=== PATIENT | male | born 1945 | race Caucasian/White ===

== ENCOUNTER → 2016-04-18 | Outpatient (REF) | payer MEDICARE, OTHER | END | disposition home or self-care (01) | LOC: M LAB REF 16:44 | PROVIDERS: ATTEND Physician Assistant | DX: L03.115 Cellulitis of right lower limb (principal) ==

== ENCOUNTER → 2016-09-12 | Outpatient (CLI) | payer MEDICARE, OTHER | LOC: M WUC 08:33 | PROVIDERS: ATTEND Physician Assistant | DX: M10.021 Idiopathic gout, right elbow (principal) ==

== ENCOUNTER → 2016-09-20 | Outpatient (CLI) | payer MEDICARE, OTHER ==
--- NOTE | 2016-09-20 10:03 | REP ---
Clinical: Pain without trauma. Technique: AP, lateral, bilateral oblique views of the right elbow. Findings: Arthritic degenerative changes include cortical irregularity involving the humeral condyles and proximal elbow along with subtle subchondral sclerosis as well as calcified loose bodies within the joint space. Lateral view demonstrates mild soft tissue swelling and possible chronic joint effusion/bursitis. Impression: Moderate arthritic degenerative changes. Signed by Stephen Vargas MD 09/20/2016 09:55 A
== END ==
LOC: M WUC 09:35
PROVIDERS: ATTEND Physician Assistant
DX: M77.11 Lateral epicondylitis, right elbow (principal)

== ENCOUNTER → 2016-10-11 | Outpatient (CLI) | payer MEDICARE, OTHER ==
--- NOTE | 2016-10-11 12:41 | REP ---
Low-dose lung screening CT without IV contrast: Studies presented at lung windowing only. Comparison is 08/14/2014. There are no lung nodules or masses. No infiltrates or effusions. Impression: Category 1 low-dose screening chest CT . The recommendation is for continued annual low-dose lung CT screening. Signed by Georgi Valdes MD 10/11/2016 12:32 P
== END ==
LOC: M RAD 09:52
PROVIDERS: ATTEND Family Medicine
DX: Z87.891 Personal history of nicotine dependence (principal)

== ENCOUNTER → 2016-10-19 | Outpatient (CLI) | payer MEDICARE, OTHER ==
--- NOTE | 2016-10-19 16:17 | REP ---
LEFT FOOT, FOUR VIEWS: HISTORY: Pain. There is no acute fracture or dislocation. There is narrowing of the tarsal and tarsometatarsal, first and second metatarsophalangeal joint spaces. Osteophytes are present at the second metatarsal phalangeal joint space. Calcifications are present medial and lateral to the head of the first metatarsal. Osteophytes are present on the inferior calcaneus and posterior and anterosuperior talus. A faint lucency is present in the head of the second metatarsal. This may represent a small erosion. IMPRESSION: The above findings most likely represent osteoarthritis, however, erosive osteoarthritis and gout____ are not completely excluded. Signed by Jim Lang MD 10/19/2016 04:18 P
== END ==
LOC: M WUC 14:13
PROVIDERS: ATTEND Physician Assistant
DX: M79.672 Pain in left foot (principal)

== ENCOUNTER 2017-09-02 09:26 | Emergency (ER) | payer MEDICARE, OTHER ==
[2017-09-02] MEDS: LIDOCAINE 2% W/EPIN INJ 20ML **PRES FREE INJ (10:02)
== END 2017-09-02 10:28 | disposition home or self-care (01) ==
LOC: M ED 09:26
DX: N50.9 Disorder of male genital organs, unspecified (principal); G24.9 Dystonia, unspecified; Z87.891 Personal history of nicotine dependence; Z79.82 Long term (current) use of aspirin; Z79.899 Other long term (current) drug therapy; Z91.89 Other specified personal risk factors, not elsewhere classified
CPT/HCPCS: 10060

== ENCOUNTER 2017-10-03 08:24 | Day surgery (SDC) | payer MEDICARE, OTHER ==
[2017-10-03] MEDS: NS 1,000 ML IV (08:30)
[2017-10-03] MEDS ORDERED: PROPOFOL 200 MG/20 ML VIAL As Ordered ×2 (08:46→09:31)
[2017-10-03] MEDS ORDERED: LIDOCAINE 2% INJ 100 MG/5 ML SDV (FOR ANES.) As Ordered (08:51)
[2017-10-03] MEDS ORDERED: LIQUID POLIBAR PLUS 105% w/v 1900ML BTL As Ordered (14:15)
== END 2017-10-03 14:15 | disposition home or self-care (01) ==
LOC: M OPP 08:24
DX: Z12.11 Encounter for screening for malignant neoplasm of colon (principal); Z86.010 Personal history of colon polyps; K57.30 Diverticulosis of large intestine without perforation or abscess without bleeding; K21.9 Gastro-esophageal reflux disease without esophagitis; D64.9 Anemia, unspecified; G24.9 Dystonia, unspecified; G64 Other disorders of peripheral nervous system; E78.5 Hyperlipidemia, unspecified; R23.3 Spontaneous ecchymoses; Z79.82 Long term (current) use of aspirin; Z79.899 Other long term (current) drug therapy; Z86.79 Personal history of other diseases of the circulatory system; Z87.39 Personal history of other diseases of the musculoskeletal system and connective tissue; Z96.642 Presence of left artificial hip joint; Z87.891 Personal history of nicotine dependence
CPT/HCPCS: G0105

== ENCOUNTER → 2017-10-19 | Outpatient (CLI) | payer MEDICARE, OTHER | LOC: M RAD 15:21 | DX: Z12.2 Encounter for screening for malignant neoplasm of respiratory organs (principal); Z87.891 Personal history of nicotine dependence | CPT/HCPCS: G0297 ==

== ENCOUNTER 2017-12-28 21:06 | Emergency (ER) | payer MEDICARE, OTHER ==
[2017-12-28] MEDS: NS 1,000 ML IV (21:41)
[2017-12-28] MEDS: ONDANSETRON 4MG/2ML VIAL (J2405) IV (21:45)
[2017-12-28 21:58] LABS: BASO # 0.1 10^3/uL (0.0-0.2); BASO % 0.4 % (0.0-1.0); EOS # 0.2 10^3/uL (0.0-0.50); EOS % 1.3 % (0.0-3.0); HEMATOCRIT 38.6 % (42.0-52.0); HEMOGLOBIN 13.3 g/dl (13.5-17.5); IMMATURE GRANULOCYTE % 0.4 % (0-3.0); LYMPH # 1.9 10^3/uL (1.5-4.5); LYMPH % 15.8 % (24.0-44.0); MEAN CORPUSCULAR HEMOGLOBIN 33.1 pg (27.0-33.0); MEAN CORPUSCULAR HGB CONC 34.5 g/dl (32.0-36.5); MONO % 8.5 % (0.0-5.0); NEUTROPHILS % 73.6 % (36.0-66.0); PLATELET COUNT, AUTOMATED 218 10^3/uL (150-450); RED BLOOD COUNT 4.02 10^6/uL (4.30-6.10); RED CELL DISTRIBUTION WIDTH 12.8 % (11.5-14.5); WHITE BLOOD COUNT 12.2 10^3/uL (4.0-10.0)
[2017-12-28] MEDS: FAMOTIDINE IV BAG 20 MG in APPROPRIATE DILUENT 1 EA IV (21:59)
[2017-12-28 22:08] LABS: INR 1.04; PROTHROMBIN TIME 13.7 SECONDS (12.1-14.4)
[2017-12-28 23:06] LABS: ALBUMIN 3.1 GM/DL (3.2-5.2); ALBUMIN/GLOBULIN RATIO 0.89 (1.00-1.93); ALKALINE PHOSPHATASE 107 U/L (45-117); ALT/SGPT 34 U/L (12-78); AMYLASE 72 U/L (25-115); ANION GAP 9 MEQ/L (8-16); AST/SGOT 31 U/L (7-37); BILIRUBIN,DIRECT < 0.1 MG/DL (0.0-0.2); BILIRUBIN,TOTAL 0.3 MG/DL (0.2-1.0); BLOOD UREA NITROGEN 16 MG/DL (7-18); CALCIUM LEVEL 7.8 MG/DL (8.8-10.2); CARBON DIOXIDE LEVEL 25 MEQ/L (21-32); CHLORIDE LEVEL 104 MEQ/L (98-107); CPK CREATINE PHOSPHOKINASE 294 U/L (39-308); CREATININE FOR GFR 0.79 MG/DL (0.70-1.30); GLOMERULAR FILTRATION RATE > 60.0 (>42); GLUCOSE, FASTING 100 MG/DL (70-100); LIPASE 94 U/L (73-393); MB/CK RELATIVE INDEX 1.97 (< OR =4); POTASSIUM SERUM 4.7 MEQ/L (3.5-5.1); SODIUM LEVEL 138 MEQ/L (136-145); TOTAL PROTEIN 6.6 GM/DL (6.4-8.2); TROPONIN I < 0.02 NG/ML (< 0.10)
== END 2017-12-28 23:59 | disposition home or self-care (01) ==
LOC: M ED 21:06
DX: R11.0 Nausea (principal); I49.3 Ventricular premature depolarization; R94.31 Abnormal electrocardiogram [ECG] [EKG]; I48.91 Unspecified atrial fibrillation; E78.5 Hyperlipidemia, unspecified; G89.29 Other chronic pain; Z82.49 Family history of ischemic heart disease and other diseases of the circulatory system; Z91.048 Other nonmedicinal substance allergy status; Z95.828 Presence of other vascular implants and grafts; Z98.890 Other specified postprocedural states
CPT/HCPCS: J2405

== ENCOUNTER 2018-06-20 19:18 | Emergency (ER) | payer OTHER, MEDICARE ==
[~2018-06-20] VITALS: Ht 172.7 cm; Wt 78.2 kg
[~2018-06-20 19:18] MED LIST: ALPR0.5T3 PO; ASPI81TA85 PO; BACT800T5 PO; CELE1CAP9 PO; FIBE625T22 PO; FLUTISP; GABA600T4 PO; SIMV20TA2 PO; VITA200015 PO; ZOFR4TAB14 PO
[2018-06-20] MEDS ORDERED: CLEO300C2 PO (21:13)
[2018-06-20] MEDS ORDERED: CLINDAMYCIN 150 MG CAP PO ONE (21:15)
[2018-06-20 21:20] VITALS: BP 152/70
== END 2018-06-20 21:23 | disposition home or self-care (01) ==
LOC: M ED 19:18
DX: L03.115 Cellulitis of right lower limb (principal); Z95.828 Presence of other vascular implants and grafts; Z86.79 Personal history of other diseases of the circulatory system; Z91.048 Other nonmedicinal substance allergy status; Z79.899 Other long term (current) drug therapy

== ENCOUNTER → 2018-10-12 | Outpatient (CLI) | payer MEDICARE, OTHER ==
[~2018-10-12] MED LIST changes: +CLEO300C2 PO
--- NOTE | 2018-10-12 09:50 | REP ---
Right hand five views for fifth digit. Probable: There are no comparisons. There is PIP and DIP joint space narrowing compatible with early osteoarthritic change. There are is no fracture or dislocation. There is no abnormality of the fifth digit in the location of the palpable lump. There is extensive calcification of the radiocarpal joint including the triangular fibrocartilage compatible with CPPD. There is a bone cyst in the ulnar head. There is joint space narrowing of the radiocarpal joint compatible with osteoarthritis. Impression: There are findings compatible with osteoarthritis and the digits and in the radiocarpal joint. There is calcification of the radiocarpal joint compatible with CPPD. No abnormality of the fifth digit in the area of the palpable lump. Electronically Signed by Georgi Valdes MD 10/12/2018 09:42 A
== END ==
LOC: M WUC 09:18
PROVIDERS: ATTEND Family Medicine
DX: M19.041 Primary osteoarthritis, right hand (principal); M25.741 Osteophyte, right hand

== ENCOUNTER → 2018-10-25 | Outpatient (CLI) | payer MEDICARE, OTHER ==
[~2018-10-25] MED LIST changes: +CIDA500T2 PO; +CITRTAB13 PO; +COQ1100C4 PO; +CYAN100049 PO; +DOCU-129 PO; +QC F0.52 PO; -SIMV20TA2 PO; +SIMV20TA22 PO; +VITA100T29 PO
--- NOTE | 2018-10-25 14:27 | REP ---
REASON: Tobacco abuse. COMPARISON: Multiple, the latest 10/19/2017. As per the protocol, only lung window images were sent to the read station for interpretation. There are no significant changes. There are no new abnormal nodules, masses, or opacities. Grossly, the mediastinum and pulmonary josé are unchanged. Grossly, the imaged upper abdomen and imaged osseous structures are unchanged. IMPRESSION: No significant change. Lung RADS category I. Electronically Signed by Marquez Yao DO 10/25/2018 05:00 P
== END ==
LOC: M RAD 07:51
PROVIDERS: ATTEND Family Medicine
DX: Z87.891 Personal history of nicotine dependence (principal)

== ENCOUNTER → 2019-01-29 | Outpatient (CLI) | payer MEDICARE, OTHER ==
[~2019-01-29] MED LIST changes: -CIDA500T2 PO; -CITRTAB13 PO; -COQ1100C4 PO; -CYAN100049 PO; -DOCU-129 PO; -QC F0.52 PO; +SIMV20TA2 PO; -SIMV20TA22 PO; -VITA100T29 PO
--- NOTE | 2019-01-29 15:22 | ECGEPIP ---
[facility] [place] Test Date: 2019-01-29 Pat Name: TOD VIRAMONTES Department: Room: - Gender: Male Customer Operations Intern: : 1945 Requested By: Shayan Gaytan @ [facility] Order Number: [id number] Reading MD: Saba Robin Measurements Intervals [place] Rate: 74 P: TN: 0 QRS: -63 QRSD: 176 T: 26 QT: 427 QTc: 475 Interpretive Statements SINUS SANCHEZ WITH FREQUENT PVCX, RARE PAC RIGHT BUNDLE BRANCH BLOCK LEFT ANTERIOR FASCICULAR BLOCK PULM DIS PATTERN UNEVEN BASELINE MAKES INTERPRET OF ST TS DIFFICULT QTC PROLONGED C/W 12/28/17 Electronically Signed on 01-29-2019 15:22:26 EST by Saba Robin
== END ==
LOC: M LAB 07:52
PROVIDERS: ATTEND Orthopaedic Surgery
DX: Z01.811 Encounter for preprocedural respiratory examination (principal); M48.02 Spinal stenosis, cervical region; R94.31 Abnormal electrocardiogram [ECG] [EKG]

== ENCOUNTER 2019-09-02 14:06 | Emergency (ER) | payer MEDICARE, OTHER ==
[~2019-09-02] VITALS: Ht 170.2 cm; Wt 74.0 kg
[~2019-09-02 14:06] MED LIST changes: +CIDA500T2 PO; +CITRTAB16 PO; +COQ1100C4 PO; +CYAN100049 PO; +DOCU-129 PO; +QC F0.52 PO; -SIMV20TA2 PO; +SIMV20TA22 PO; +VITA100T29 PO
[2019-09-02] MEDS ORDERED: CIPR-249 PO (16:32)
[2019-09-02 16:40] VITALS: BP 135/65
== END 2019-09-02 16:43 | disposition home or self-care (01) ==
LOC: M ED 14:06
DX: K61.1 Rectal abscess (principal)

== ENCOUNTER → 2019-09-19 | Outpatient (REF) | payer MEDICARE, OTHER ==
[~2019-09-19] MED LIST changes: +CIPR-249 PO
[2019-09-19 13:28] LABS: FOLATE 9.5 NG/ML
[2019-09-25 13:07] LABS: CERULOPLASMIN 26.8 mg/dL (16.0-31.0); VITAMIN B1 LEVEL WHOLE BLOOD 99.9 nmol/L (66.5-200.0); VITAMIN B6,PYRIDOXAL PHOSPHATE 54.6 ug/L (5.3-46.7); VITAMIN E(ALPHA TOCOPHEROL) 10.2 mg/L (9.0-29.0); VITAMIN E(GAMMA TOCOPHEROL) 1.5 mg/L (0.5-4.9)
== END ==
LOC: M LAB REF 11:14
PROVIDERS: ATTEND Family Medicine
DX: E83.01 Wilson's disease (principal); E53.8 Deficiency of other specified B group vitamins

== ENCOUNTER → 2019-11-19 | Outpatient (CLI) | payer MEDICARE, OTHER ==
[~2019-11-19] MED LIST changes: -ASPI81TA85 PO; +ASPI81TA86 PO
--- NOTE | 2019-12-17 14:59 | REP ---
LOW-DOSE LUNG SCREENING CT CLINICAL: Nicotine dependence. TECHNIQUE: Axial noncontrast low dose lung screening images. COMPARISON: 10/25/2018, 10/11/2016. FINDINGS: Lung anguiano demonstrate chronic age-related interstitial changes and mild subpleural fibrosis (right greater than left). Findings appeared mildly progressive when compared to prior examinations. No focal consolidation. No nodule or mass lesion. No effusion. Tracheobronchial tree is patent. Limited evaluation of the mediastinum demonstrate atherosclerotic disease to the thoracic aorta and coronary arteries along with cardiomegaly. Few prominent lymph nodes again noted and stable. IMPRESSION: * Progressive chronic interstitial changes and subpleural fibrosis. * No acute nodule or mass. * Lung-RADS Category 1. Annual follow up surveillance CT recommended. MTDD
== END ==
LOC: M RAD 14:55
PROVIDERS: ATTEND Family Medicine
DX: Z12.2 Encounter for screening for malignant neoplasm of respiratory organs (principal); Z87.891 Personal history of nicotine dependence; J84.10 Pulmonary fibrosis, unspecified

== ENCOUNTER → 2020-01-08 | Outpatient (CLI) | payer MEDICARE, OTHER ==
[2020-01-08 17:14] LABS: HEMATOCRIT 40.2 % (42.0-52.0); HEMOGLOBIN 13.3 g/dl (13.5-17.5); MEAN CORPUSCULAR HGB CONC 33.1 g/dl (32.0-36.5); MEAN CORPUSCULAR VOLUME 99.8 fl (80.0-96.0); PLATELET COUNT, AUTOMATED 193 10^3/uL (150-450); RED BLOOD COUNT 4.03 10^6/uL (4.30-6.10); WHITE BLOOD COUNT 8.2 10^3/uL (4.0-10.0)
[2020-01-08 17:23] LABS: BLOOD UREA NITROGEN 17 MG/DL (7-18); CALCIUM LEVEL 8.8 MG/DL (8.8-10.2); CARBON DIOXIDE LEVEL 27 MEQ/L (21-32); CHLORIDE LEVEL 104 MEQ/L (98-107); CREATININE FOR GFR 0.81 MG/DL (0.70-1.30); GLOMERULAR FILTRATION RATE > 60.0 (>42); GLUCOSE, FASTING 90 MG/DL (70-100); POTASSIUM SERUM 4.4 MEQ/L (3.5-5.1); SODIUM LEVEL 139 MEQ/L (136-145)
== END ==
LOC: M WUC 10:37
PROVIDERS: ATTEND Physician Assistant
DX: R94.30 Abnormal result of cardiovascular function study, unspecified (principal)

== ENCOUNTER → 2020-01-08 | Outpatient (CLI) | payer MEDICARE, OTHER | LOC: M LABSMTC 10:14 | PROVIDERS: ATTEND Internal Medicine Cardiovascular Disease | DX: R94.30 Abnormal result of cardiovascular function study, unspecified (principal); Z20.828 Contact with and (suspected) exposure to other viral communicable diseases | CPT/HCPCS: 36415; 80048; 85027; C9803; U0003 ==

== ENCOUNTER → 2020-01-23 | Outpatient (REF) | payer MEDICARE, OTHER ==
[2020-01-23 13:47] LABS: INR 1.25
== END ==
LOC: M LAB REF 12:33
PROVIDERS: ATTEND Family Medicine
DX: I25.10 Atherosclerotic heart disease of native coronary artery without angina pectoris (principal); Z95.1 Presence of aortocoronary bypass graft

== ENCOUNTER → 2020-02-10 | Outpatient (REF) | payer MEDICARE, OTHER ==
[2020-02-10 14:07] LABS: INR 3.53; PROTHROMBIN TIME 36.2 SECONDS (12.5-14.3)
== END ==
LOC: M LAB REF 13:20
PROVIDERS: ATTEND Physician Assistant
DX: I48.0 Paroxysmal atrial fibrillation (principal); Z79.01 Long term (current) use of anticoagulants

== ENCOUNTER → 2020-02-17 | Outpatient (REF) | payer MEDICARE, OTHER ==
[2020-02-17 14:51] LABS: INR 1.54; PROTHROMBIN TIME 18.8 SECONDS (12.5-14.3)
== END ==
LOC: M LAB REF 14:19
PROVIDERS: ATTEND Physician Assistant
DX: I48.0 Paroxysmal atrial fibrillation (principal)

== ENCOUNTER → 2020-02-24 | Outpatient (REF) | payer MEDICARE, OTHER ==
[2020-02-24 13:50] LABS: INR 1.37; PROTHROMBIN TIME 17.2 SECONDS (12.5-14.3)
== END ==
LOC: M LAB REF 13:10
PROVIDERS: ATTEND Physician Assistant
DX: I48.0 Paroxysmal atrial fibrillation (principal)

== ENCOUNTER → 2020-03-10 | Outpatient (CLI) | payer SELFPAY | LOC: M LABSMTC 10:45 | PROVIDERS: ATTEND Pediatrics | DX: Z20.828 Contact with and (suspected) exposure to other viral communicable diseases (principal) ==

== ENCOUNTER → 2020-05-29 | Outpatient (CLI) | payer MEDICARE, OTHER ==
--- NOTE | 2020-05-29 10:25 | REP ---
INDICATION: AAA COMPARISON: None. TECHNIQUE: Real time ashley scale ultrasound examination using curved array transducer. FINDINGS: Examination is severe limited due to interposed bowel gas. Visualized portions of the abdominal aorta demonstrate partially calcified atherosclerotic changes and known aneurysm with aortoiliac stent placement. Aneurysm measures roughly 3.6 x 4.5 cm diameter and 6.8 cm in craniocaudal length. Proximal aorta: Gassed out Aorta at renal arteries: Gassed out Mid aorta: Gassed out Distal aorta: 3.6 x 4.5 cm Right common iliac artery: 2.0 x 1.5 cm Left common iliac artery: 1.7 x 1.5 cm IMPRESSION: Limited examination due to overlying bowel gas. Abdominal aortic aneurysm with aortoiliac stent noted. <Electronically signed by Stephen Vargas > 05/29/20 1023
== END ==
LOC: M RAD 09:36
PROVIDERS: ATTEND Physician Assistant
DX: I71.4 Abdominal aortic aneurysm, without rupture (principal); Z95.828 Presence of other vascular implants and grafts

== ENCOUNTER 2020-07-24 20:29 | Emergency (ER) | payer MEDICARE, OTHER ==
[~2020-07-24] VITALS: Ht 170.2 cm; Wt 96.8 kg
[~2020-07-24 20:29] MED LIST changes: -DOCU-129 PO; +DOCU-153 PO
[2020-07-24 23:46] LABS: BASO % 0.4 % (0.0-1.0); EOS # 0.2 10^3/uL (0.0-0.5); EOS % 1.6 % (0.0-3.0); HEMOGLOBIN 9.8 g/dl (13.5-17.5); LYMPH # 2.2 10^3/uL (1.5-5.0); LYMPH % 20.6 % (24.0-44.0); MEAN CORPUSCULAR HEMOGLOBIN 31.3 pg (27.0-33.0); MEAN CORPUSCULAR HGB CONC 32.7 g/dl (32.0-36.5); MEAN CORPUSCULAR VOLUME 95.8 fl (80.0-96.0); MONO # 1.1 10^3/uL (0.0-0.8); MONO % 10.4 % (2.0-8.0); NEUTROPHILS % 66.5 % (36.0-66.0); PLATELET COUNT, AUTOMATED 351 10^3/uL (150-450); RED BLOOD COUNT 3.13 10^6/uL (4.30-6.10); WHITE BLOOD COUNT 10.6 10^3/uL (4.0-10.0)
[2020-07-25] MEDS ORDERED: ISOVUE-370 76% 100ML VIAL As Ordered ONE (00:01)
--- NOTE | 2020-07-25 00:49 | REPVR ---
PROCEDURE INFORMATION: Exam: CT Cervical Spine With Contrast Exam date and time: 07/24/2020 11:54 PM Age: 74 years old Clinical indication: Abscess, cutaneous; Prior surgery; Surgery date: 1-6 months; Surgery type: Cerv laminectomy; Additional info: Laminectomy 06/01, draining abscess, assess depth/hard involv TECHNIQUE: Imaging protocol: Computed tomography images of the cervical spine with intravenous contrast. Radiation optimization: All CT scans at this facility use at least one of these dose optimization techniques: automated exposure control; mA and/or kV adjustment per patient size (includes targeted exams where dose is matched to clinical indication); or iterative reconstruction. Contrast material: ISO; Contrast volume: 75 ml; Contrast route: INTRAVENOUS (IV); COMPARISON: No relevant prior studies available. FINDINGS: Limitations: Limited by patient's body habitus. Bones/joints: Previous right-sided laminoplasty with widening of the spinal canal, and subtle, suspect surgically created left-sided lamina fractures from C4 to C7. Advanced degenerative disc and joint disease with multiple alignment abnormalities with stepwise C4-C7 retrolisthesis. Discs/Spinal canal/Neural foramina: Bulky degenerative disc osteophyte complexes causing multilevel moderate to severe foraminal stenosis. Visualization of the spinal canal in the region of surgery is extremely limited as result of body habitus and artifact secondary to hardware. Esophagus: Patulous esophagus. Lungs: Lung apices are normal. Vasculature: At least, moderate right ICA and mild left ICA stenosis. Moderate right vertebral artery stenosis. Mild left vertebral artery stenosis. Soft tissues: Gas and fluid collection in the subcutaneous fat extending the depth of the lamina plasty measuring 3.9 x 4.4 x 5 cm. Small tract of fluid which extends to the surface, through the superficial fascia at the C5 level. IMPRESSION: 1. Previous right-sided laminoplasty with widening of the spinal canal, and subtle, suspect surgically created left-sided lamina fractures from C4 to C7. Gas and fluid collection in the subcutaneous fat extending to the depth of the laminaplasty measuring 3.9 x 4.4 x 5 cm. Small tract of fluid which extends to the surface through the superficial fascia at the C5 level. 3. Visualization of the spinal canal in the region of surgery is extremely limited as result of body habitus and artifact secondary to hardware. 4. At least, moderate right ICA stenosis. Electronically signed by: Lazaro Dominguez On 07/25/2020 00:48:56 AM
[2020-07-25] MEDS ORDERED: METO1TAB87 PO (01:52)
[2020-07-25] MEDS ORDERED: ELIQ5TAB PO (01:52)
[2020-07-25] MEDS ORDERED: MECL-86 (01:52)
[2020-07-25] MEDS ORDERED: PIPERACILLIN/TAZOBACTAM SOD 3.375 GM in D5W MINI-BAG PLUS 50 ML IV ONE (02:05)
[2020-07-25 03:03] VITALS: BP 155/77
== END 2020-07-25 03:10 | disposition short-term general hospital (02) ==
LOC: M ED 20:29
DX: T81.49XA Infection following a procedure, other surgical site, initial encounter (principal); X58.XXXA Exposure to other specified factors, initial encounter; Y92.89 Other specified places as the place of occurrence of the external cause; Z98.890 Other specified postprocedural states; I25.10 Atherosclerotic heart disease of native coronary artery without angina pectoris; Z91.048 Other nonmedicinal substance allergy status; Z79.899 Other long term (current) drug therapy; Z79.01 Long term (current) use of anticoagulants; Z79.82 Long term (current) use of aspirin
CPT/HCPCS: 70491; 80047; 85025; 86140; 87040; 87070; 87077; 87186; 96365; 99284; J2543; Q9967

== ENCOUNTER 2020-08-09 08:04 | Emergency (ER) | payer MEDICARE, OTHER ==
[~2020-08-09] VITALS: Ht 170.2 cm; Wt 61.4 kg
[~2020-08-09 08:04] MED LIST changes: +ELIQ5TAB PO; +MECL-86; +METO1TAB87 PO
[2020-08-09 08:05] VITALS: BP 128/95
[2020-08-09] MEDS ORDERED: ATOR40TA75 (08:15)
[2020-08-09] MEDS ORDERED: SODIUM CHLORIDE 0.9% INJ 10 ML SYR IV PRN (08:40)
== END 2020-08-09 09:21 | disposition home or self-care (01) ==
LOC: M ED 08:04
DX: T82.838A Hemorrhage due to vascular prosthetic devices, implants and grafts, initial encounter (principal); Z79.899 Other long term (current) drug therapy; Z79.82 Long term (current) use of aspirin; Z91.048 Other nonmedicinal substance allergy status; Z98.890 Other specified postprocedural states
CPT/HCPCS: 96374; 99282; J1642

== ENCOUNTER → 2020-08-10 | Outpatient (REF) | payer MEDICARE, OTHER ==
[~2020-08-10] MED LIST changes: +ATOR40TA75
[2020-08-10 17:57] LABS: BASO # 0.1 10^3/uL (0.0-0.2); BASO % 0.7 % (0.0-1.0); EOS # 0.4 10^3/uL (0.0-0.5); EOS % 4.7 % (0.0-3.0); HEMATOCRIT 29.5 % (42.0-52.0); HEMOGLOBIN 9.4 g/dl (13.5-17.5); LYMPH # 1.9 10^3/uL (1.5-5.0); LYMPH % 22.3 % (24.0-44.0); MEAN CORPUSCULAR HEMOGLOBIN 30.8 pg (27.0-33.0); MEAN CORPUSCULAR HGB CONC 31.9 g/dl (32.0-36.5); MEAN CORPUSCULAR VOLUME 96.7 fl (80.0-96.0); MONO # 0.8 10^3/uL (0.0-0.8); MONO % 9.4 % (2.0-8.0); NEUTROPHILS # 5.4 10^3/uL (1.5-8.5); NEUTROPHILS % 62.6 % (36.0-66.0); PLATELET COUNT, AUTOMATED 312 10^3/uL (150-450); RED BLOOD COUNT 3.05 10^6/uL (4.30-6.10); WHITE BLOOD COUNT 8.7 10^3/uL (4.0-10.0)
[2020-08-10 18:22] LABS: ALBUMIN 2.8 GM/DL (3.2-5.2); ALT/SGPT 12 U/L (12-78); BILIRUBIN,TOTAL 0.3 MG/DL (0.2-1.0); BLOOD UREA NITROGEN 16 MG/DL (7-18); C REACTIVE PROTEIN QUANTITATIV 0.98 MG/DL (0.00-0.30); CALCIUM LEVEL 8.3 MG/DL (8.8-10.2); CARBON DIOXIDE LEVEL 27 MEQ/L (21-32); CHLORIDE LEVEL 104 MEQ/L (98-107); CREATININE FOR GFR 0.67 MG/DL (0.70-1.30); GLOMERULAR FILTRATION RATE > 60.0 (>42); GLUCOSE, FASTING 104 MG/DL (70-100); POTASSIUM SERUM 3.8 MEQ/L (3.5-5.1); SODIUM LEVEL 138 MEQ/L (136-145); TOTAL PROTEIN 6.3 GM/DL (6.4-8.2)
[2020-08-10 18:49] LABS: ERYTHROCYTE SEDIMENTATION RATE 35 mm/hr (0-20)
== END ==
LOC: M SHH 16:58
PROVIDERS: ATTEND Internal Medicine Infectious Disease
DX: R78.81 Bacteremia (principal); B95.61 Methicillin susceptible Staphylococcus aureus infection as the cause of diseases classified elsewhere; Z79.2 Long term (current) use of antibiotics; T84.7XXD Infection and inflammatory reaction due to other internal orthopedic prosthetic devices, implants and grafts, subsequent encounter

== ENCOUNTER → 2020-08-18 | Outpatient (REF) | payer MEDICARE, OTHER ==
[2020-08-18 17:56] LABS: BASO # 0.1 10^3/uL (0.0-0.2); BASO % 0.6 % (0.0-1.0); EOS # 0.8 10^3/uL (0.0-0.5); EOS % 9.3 % (0.0-3.0); HEMATOCRIT 30.7 % (42.0-52.0); HEMOGLOBIN 9.7 g/dl (13.5-17.5); LYMPH # 2.4 10^3/uL (1.5-5.0); LYMPH % 27.3 % (24.0-44.0); MEAN CORPUSCULAR HEMOGLOBIN 30.6 pg (27.0-33.0); MEAN CORPUSCULAR HGB CONC 31.6 g/dl (32.0-36.5); MEAN CORPUSCULAR VOLUME 96.8 fl (80.0-96.0); MONO # 0.9 10^3/uL (0.0-0.8); MONO % 10.7 % (2.0-8.0); NEUTROPHILS # 4.5 10^3/uL (1.5-8.5); NEUTROPHILS % 51.9 % (36.0-66.0); PLATELET COUNT, AUTOMATED 233 10^3/uL (150-450); RED BLOOD COUNT 3.17 10^6/uL (4.30-6.10); WHITE BLOOD COUNT 8.6 10^3/uL (4.0-10.0)
[2020-08-18 18:22] LABS: ERYTHROCYTE SEDIMENTATION RATE 44 mm/hr (0-20)
[2020-08-18 18:30] LABS: ALT/SGPT 10 U/L (12-78); BILIRUBIN,TOTAL 0.3 MG/DL (0.2-1.0); BLOOD UREA NITROGEN 16 MG/DL (7-18); C REACTIVE PROTEIN QUANTITATIV 0.41 MG/DL (0.00-0.30); CALCIUM LEVEL 8.7 MG/DL (8.8-10.2); CARBON DIOXIDE LEVEL 26 MEQ/L (21-32); CHLORIDE LEVEL 105 MEQ/L (98-107); CREATININE FOR GFR 0.69 MG/DL (0.70-1.30); GLOMERULAR FILTRATION RATE > 60.0 (>42); GLUCOSE, FASTING 107 MG/DL (70-100); SODIUM LEVEL 140 MEQ/L (136-145); TOTAL PROTEIN 6.5 GM/DL (6.4-8.2)
== END ==
LOC: M SHH 16:12
PROVIDERS: ATTEND Internal Medicine Infectious Disease
DX: R78.81 Bacteremia (principal); B95.61 Methicillin susceptible Staphylococcus aureus infection as the cause of diseases classified elsewhere; Z79.2 Long term (current) use of antibiotics; T84.7XXD Infection and inflammatory reaction due to other internal orthopedic prosthetic devices, implants and grafts, subsequent encounter

== ENCOUNTER → 2020-08-24 | Outpatient (REF) | payer MEDICARE, OTHER ==
[2020-08-24 17:18] LABS: BASO # 0.1 10^3/uL (0.0-0.2); BASO % 0.7 % (0.0-1.0); EOS # 1.1 10^3/uL (0.0-0.5); EOS % 12.5 % (0.0-3.0); HEMOGLOBIN 10.2 g/dl (13.5-17.5); LYMPH # 1.8 10^3/uL (1.5-5.0); LYMPH % 20.4 % (24.0-44.0); MEAN CORPUSCULAR HEMOGLOBIN 30.9 pg (27.0-33.0); MEAN CORPUSCULAR HGB CONC 31.9 g/dl (32.0-36.5); MONO # 0.9 10^3/uL (0.0-0.8); MONO % 9.5 % (2.0-8.0); NEUTROPHILS # 5.1 10^3/uL (1.5-8.5); NEUTROPHILS % 56.7 % (36.0-66.0); PLATELET COUNT, AUTOMATED 225 10^3/uL (150-450); WHITE BLOOD COUNT 8.9 10^3/uL (4.0-10.0)
[2020-08-24 18:12] LABS: ALT/SGPT 10 U/L (12-78); BILIRUBIN,TOTAL 0.3 MG/DL (0.2-1.0); BLOOD UREA NITROGEN 20 MG/DL (7-18); CALCIUM LEVEL 9.3 MG/DL (8.8-10.2); CARBON DIOXIDE LEVEL 25 MEQ/L (21-32); CHLORIDE LEVEL 103 MEQ/L (98-107); GLOMERULAR FILTRATION RATE > 60.0 (>42); GLUCOSE, FASTING 111 MG/DL (70-100); POTASSIUM SERUM 4.3 MEQ/L (3.5-5.1); SODIUM LEVEL 139 MEQ/L (136-145); TOTAL PROTEIN 6.6 GM/DL (6.4-8.2)
[2020-08-24 19:22] LABS: ERYTHROCYTE SEDIMENTATION RATE 37 mm/hr (0-20)
== END ==
LOC: M SHH 15:36
PROVIDERS: ATTEND Internal Medicine Infectious Disease
DX: R78.81 Bacteremia (principal); B95.61 Methicillin susceptible Staphylococcus aureus infection as the cause of diseases classified elsewhere; Z79.2 Long term (current) use of antibiotics; T84.7XXD Infection and inflammatory reaction due to other internal orthopedic prosthetic devices, implants and grafts, subsequent encounter

== ENCOUNTER → 2020-08-31 | Outpatient (REF) | payer MEDICARE, OTHER ==
[2020-08-31 19:08] LABS: BASO # 0.1 10^3/uL (0.0-0.2); BASO % 0.7 % (0.0-1.0); EOS # 2.3 10^3/uL (0.0-0.5); HEMATOCRIT 32.1 % (42.0-52.0); HEMOGLOBIN 10.1 g/dl (13.5-17.5); LYMPH # 2.5 10^3/uL (1.5-5.0); LYMPH % 22.3 % (24.0-44.0); MEAN CORPUSCULAR HEMOGLOBIN 30.4 pg (27.0-33.0); MEAN CORPUSCULAR HGB CONC 31.5 g/dl (32.0-36.5); MEAN CORPUSCULAR VOLUME 96.7 fl (80.0-96.0); MONO # 0.9 10^3/uL (0.0-0.8); MONO % 8.1 % (2.0-8.0); NEUTROPHILS # 5.3 10^3/uL (1.5-8.5); NEUTROPHILS % 47.7 % (36.0-66.0); PLATELET COUNT, AUTOMATED 216 10^3/uL (150-450); RED BLOOD COUNT 3.32 10^6/uL (4.30-6.10); WHITE BLOOD COUNT 11.2 10^3/uL (4.0-10.0)
[2020-08-31 19:22] LABS: BLOOD UREA NITROGEN 18 MG/DL (7-18); CALCIUM LEVEL 8.6 MG/DL (8.8-10.2); CARBON DIOXIDE LEVEL 25 MEQ/L (21-32); CHLORIDE LEVEL 106 MEQ/L (98-107); CREATININE FOR GFR 0.67 MG/DL (0.70-1.30); GLOMERULAR FILTRATION RATE > 60.0 (>42); GLUCOSE, FASTING 96 MG/DL (70-100); POTASSIUM SERUM 4.2 MEQ/L (3.5-5.1); SODIUM LEVEL 137 MEQ/L (136-145)
[2020-08-31 19:23] LABS: ALBUMIN 3.1 GM/DL (3.2-5.2); ALT/SGPT 14 U/L (12-78); BILIRUBIN,TOTAL 0.2 MG/DL (0.2-1.0); C REACTIVE PROTEIN QUANTITATIV 0.99 MG/DL (0.00-0.30); TOTAL PROTEIN 6.7 GM/DL (6.4-8.2)
[2020-08-31 20:20] LABS: ERYTHROCYTE SEDIMENTATION RATE 37 mm/hr (0-20)
== END ==
LOC: M SHH 17:30
PROVIDERS: ATTEND Internal Medicine Infectious Disease
DX: R78.81 Bacteremia (principal); B95.61 Methicillin susceptible Staphylococcus aureus infection as the cause of diseases classified elsewhere; T84.7XXD Infection and inflammatory reaction due to other internal orthopedic prosthetic devices, implants and grafts, subsequent encounter; Y82.9 Unspecified medical devices associated with adverse incidents; Z79.2 Long term (current) use of antibiotics

== ENCOUNTER → 2020-09-15 | Outpatient (CLI) | payer MEDICARE, OTHER ==
[2020-09-15 13:52] LABS: BASO # 0.1 10^3/uL (0.0-0.2); BASO % 0.6 % (0.0-1.0); EOS # 0.4 10^3/uL (0.0-0.5); EOS % 4.4 % (0.0-3.0); HEMATOCRIT 32.5 % (42.0-52.0); HEMOGLOBIN 10.3 g/dl (13.5-17.5); LYMPH # 1.9 10^3/uL (1.5-5.0); LYMPH % 21.2 % (24.0-44.0); MEAN CORPUSCULAR HEMOGLOBIN 30.6 pg (27.0-33.0); MEAN CORPUSCULAR HGB CONC 31.7 g/dl (32.0-36.5); MEAN CORPUSCULAR VOLUME 96.4 fl (80.0-96.0); MONO # 0.9 10^3/uL (0.0-0.8); MONO % 9.5 % (2.0-8.0); NEUTROPHILS # 5.8 10^3/uL (1.5-8.5); NEUTROPHILS % 64.1 % (36.0-66.0); PLATELET COUNT, AUTOMATED 251 10^3/uL (150-450); RED BLOOD COUNT 3.37 10^6/uL (4.30-6.10)
[2020-09-15 14:15] LABS: ALBUMIN 3.1 GM/DL (3.2-5.2); ALT/SGPT 17 U/L (12-78); BILIRUBIN,TOTAL 0.4 MG/DL (0.2-1.0); BLOOD UREA NITROGEN 22 MG/DL (7-18); C REACTIVE PROTEIN QUANTITATIV 0.33 MG/DL (0.00-0.30); CALCIUM LEVEL 8.6 MG/DL (8.8-10.2); CARBON DIOXIDE LEVEL 27 MEQ/L (21-32); CHLORIDE LEVEL 105 MEQ/L (98-107); GLOMERULAR FILTRATION RATE > 60.0 (>42); GLUCOSE, FASTING 86 MG/DL (70-100); POTASSIUM SERUM 4.6 MEQ/L (3.5-5.1); SODIUM LEVEL 137 MEQ/L (136-145); TOTAL PROTEIN 6.4 GM/DL (6.4-8.2)
[2020-09-15 14:24] LABS: ERYTHROCYTE SEDIMENTATION RATE 37 mm/hr (0-20)
== END ==
LOC: M PLALAB 09:52
DX: R78.81 Bacteremia (principal); B95.61 Methicillin susceptible Staphylococcus aureus infection as the cause of diseases classified elsewhere; Z79.2 Long term (current) use of antibiotics

== ENCOUNTER → 2020-10-12 | Outpatient (REF) | payer MEDICARE, OTHER | LOC: M LAB REF 11:33 | PROVIDERS: ATTEND Family Medicine | DX: E83.01 Wilson's disease (principal) ==

== ENCOUNTER → 2020-10-19 | Outpatient (CLI) | payer MEDICARE, OTHER ==
[2020-10-19 10:43] LABS: BASO # 0.1 10^3/uL (0.0-0.2); BASO % 0.6 % (0.0-1.0); EOS # 0.3 10^3/uL (0.0-0.5); EOS % 3.2 % (0.0-3.0); HEMATOCRIT 37.8 % (42.0-52.0); HEMOGLOBIN 12.1 g/dl (13.5-17.5); LYMPH % 21.8 % (24.0-44.0); MEAN CORPUSCULAR HEMOGLOBIN 30.6 pg (27.0-33.0); MEAN CORPUSCULAR VOLUME 95.5 fl (80.0-96.0); MONO # 0.9 10^3/uL (0.0-0.8); MONO % 9.7 % (2.0-8.0); NEUTROPHILS # 5.8 10^3/uL (1.5-8.5); NEUTROPHILS % 64.4 % (36.0-66.0); PLATELET COUNT, AUTOMATED 236 10^3/uL (150-450); RED BLOOD COUNT 3.96 10^6/uL (4.30-6.10)
[2020-10-19 11:26] LABS: ALBUMIN 3.3 GM/DL (3.2-5.2); ALT/SGPT 27 U/L (12-78); BILIRUBIN,TOTAL 0.4 MG/DL (0.2-1.0); BLOOD UREA NITROGEN 20 MG/DL (7-18); CALCIUM LEVEL 9.3 MG/DL (8.8-10.2); CARBON DIOXIDE LEVEL 29 MEQ/L (21-32); CHLORIDE LEVEL 106 MEQ/L (98-107); CREATININE FOR GFR 0.66 MG/DL (0.70-1.30); GLOMERULAR FILTRATION RATE > 60.0 (>42); GLUCOSE, FASTING 86 MG/DL (70-100); POTASSIUM SERUM 4.7 MEQ/L (3.5-5.1); SODIUM LEVEL 140 MEQ/L (136-145); TOTAL PROTEIN 6.8 GM/DL (6.4-8.2)
[2020-10-19 12:01] LABS: ERYTHROCYTE SEDIMENTATION RATE 28 mm/hr (0-20)
== END ==
LOC: M PLALAB 08:45
DX: R78.81 Bacteremia (principal); B95.61 Methicillin susceptible Staphylococcus aureus infection as the cause of diseases classified elsewhere; Z79.2 Long term (current) use of antibiotics

== ENCOUNTER → 2020-11-18 | Outpatient (CLI) | payer MEDICARE, OTHER ==
[2020-11-18 16:58] LABS: BASO % 0.5 % (0.0-1.0); EOS # 0.2 10^3/uL (0.0-0.5); EOS % 2.5 % (0.0-3.0); HEMATOCRIT 37.3 % (42.0-52.0); HEMOGLOBIN 12.2 g/dl (13.5-17.5); LYMPH # 2.1 10^3/uL (1.5-5.0); LYMPH % 23.7 % (24.0-44.0); MEAN CORPUSCULAR HEMOGLOBIN 31.5 pg (27.0-33.0); MEAN CORPUSCULAR HGB CONC 32.7 g/dl (32.0-36.5); MEAN CORPUSCULAR VOLUME 96.4 fl (80.0-96.0); MONO # 0.7 10^3/uL (0.0-0.8); MONO % 7.8 % (2.0-8.0); NEUTROPHILS # 5.8 10^3/uL (1.5-8.5); PLATELET COUNT, AUTOMATED 204 10^3/uL (150-450); RED BLOOD COUNT 3.87 10^6/uL (4.30-6.10); WHITE BLOOD COUNT 8.9 10^3/uL (4.0-10.0)
[2020-11-18 17:18] LABS: ALBUMIN 3.1 GM/DL (3.2-5.2); ALT/SGPT 26 U/L (12-78); BILIRUBIN,TOTAL 0.6 MG/DL (0.2-1.0); BLOOD UREA NITROGEN 22 MG/DL (7-18); CARBON DIOXIDE LEVEL 29 MEQ/L (21-32); CHLORIDE LEVEL 107 MEQ/L (98-107); GLOMERULAR FILTRATION RATE > 60.0 (>42); GLUCOSE, FASTING 98 MG/DL (70-100); POTASSIUM SERUM 4.7 MEQ/L (3.5-5.1); SODIUM LEVEL 141 MEQ/L (136-145); TOTAL PROTEIN 6.4 GM/DL (6.4-8.2)
[2020-11-18 18:00] LABS: ERYTHROCYTE SEDIMENTATION RATE 21 mm/hr (0-20)
== END ==
LOC: M PLALAB 12:21
PROVIDERS: ATTEND Nurse Practitioner Family
DX: R78.81 Bacteremia (principal)

== ENCOUNTER → 2020-12-03 | Outpatient (CLI) | payer MEDICARE, OTHER ==
[2020-12-03 11:03] LABS: BLOOD UREA NITROGEN 25 MG/DL (7-18); CREATININE FOR GFR 0.72 MG/DL (0.70-1.30); GLOMERULAR FILTRATION RATE > 60.0 (>42)
== END ==
LOC: M PLALAB 08:59
PROVIDERS: ATTEND Physician Assistant
DX: M48.061 Spinal stenosis, lumbar region without neurogenic claudication (principal)

== ENCOUNTER → 2020-12-18 | Outpatient (CLI) | payer MEDICARE, OTHER ==
[2020-12-18 13:50] LABS: BASO % 0.4 % (0.0-1.0); EOS # 0.3 10^3/uL (0.0-0.5); EOS % 2.6 % (0.0-3.0); HEMATOCRIT 38.1 % (42.0-52.0); HEMOGLOBIN 12.5 g/dl (13.5-17.5); LYMPH # 2.6 10^3/uL (1.5-5.0); LYMPH % 24.2 % (24.0-44.0); MEAN CORPUSCULAR HEMOGLOBIN 31.7 pg (27.0-33.0); MEAN CORPUSCULAR HGB CONC 32.8 g/dl (32.0-36.5); MEAN CORPUSCULAR VOLUME 96.7 fl (80.0-96.0); MONO # 0.9 10^3/uL (0.0-0.8); MONO % 8.7 % (2.0-8.0); NEUTROPHILS # 6.7 10^3/uL (1.5-8.5); NEUTROPHILS % 63.9 % (36.0-66.0); PLATELET COUNT, AUTOMATED 200 10^3/uL (150-450); RED BLOOD COUNT 3.94 10^6/uL (4.30-6.10); WHITE BLOOD COUNT 10.5 10^3/uL (4.0-10.0)
[2020-12-18 14:23] LABS: ALBUMIN 3.2 GM/DL (3.2-5.2); ALT/SGPT 26 U/L (12-78); BILIRUBIN,TOTAL 0.6 MG/DL (0.2-1.0); BLOOD UREA NITROGEN 24 MG/DL (7-18); CARBON DIOXIDE LEVEL 31 MEQ/L (21-32); CHLORIDE LEVEL 107 MEQ/L (98-107); CREATININE FOR GFR 0.85 MG/DL (0.70-1.30); GLOMERULAR FILTRATION RATE > 60.0 (>42); GLUCOSE, FASTING 84 MG/DL (70-100); POTASSIUM SERUM 4.9 MEQ/L (3.5-5.1); SODIUM LEVEL 141 MEQ/L (136-145); TOTAL PROTEIN 6.6 GM/DL (6.4-8.2)
[2020-12-18 14:31] LABS: ERYTHROCYTE SEDIMENTATION RATE 16 mm/hr (0-20)
== END ==
LOC: M PLALAB 11:28
PROVIDERS: ATTEND Family Medicine
DX: R78.81 Bacteremia (principal); B95.61 Methicillin susceptible Staphylococcus aureus infection as the cause of diseases classified elsewhere; Z79.2 Long term (current) use of antibiotics

== ENCOUNTER → 2021-01-25 | Outpatient (REF) | payer MEDICARE, OTHER ==
[2021-01-25 17:49] LABS: BASO # 0.1 10^3/uL (0.0-0.2); BASO % 0.5 % (0.0-1.0); EOS # 0.3 10^3/uL (0.0-0.5); EOS % 3.1 % (0.0-3.0); HEMATOCRIT 39.8 % (42.0-52.0); LYMPH # 2.7 10^3/uL (1.5-5.0); MEAN CORPUSCULAR HGB CONC 32.7 g/dl (32.0-36.5); MONO % 9.4 % (2.0-8.0); NEUTROPHILS # 6.3 10^3/uL (1.5-8.5); NEUTROPHILS % 60.5 % (36.0-66.0); PLATELET COUNT, AUTOMATED 192 10^3/uL (150-450); RED BLOOD COUNT 4.06 10^6/uL (4.30-6.10); WHITE BLOOD COUNT 10.5 10^3/uL (4.0-10.0)
[2021-01-25 18:07] LABS: ALBUMIN 3.4 GM/DL (3.2-5.2); ALT/SGPT 32 U/L (12-78); BILIRUBIN,TOTAL 0.6 MG/DL (0.2-1.0); BLOOD UREA NITROGEN 25 MG/DL (7-18); CALCIUM LEVEL 9.5 MG/DL (8.8-10.2); CARBON DIOXIDE LEVEL 26 MEQ/L (21-32); CHLORIDE LEVEL 106 MEQ/L (98-107); CREATININE FOR GFR 0.84 MG/DL (0.70-1.30); GLOMERULAR FILTRATION RATE > 60.0 (>42); GLUCOSE, FASTING 90 MG/DL (70-100); POTASSIUM SERUM 4.8 MEQ/L (3.5-5.1); SODIUM LEVEL 139 MEQ/L (136-145); TOTAL PROTEIN 6.8 GM/DL (6.4-8.2)
[2021-01-25 19:08] LABS: ERYTHROCYTE SEDIMENTATION RATE 13 mm/hr (0-20)
== END ==
LOC: M LABSMT 16:54
PROVIDERS: ATTEND Family Medicine
DX: R78.81 Bacteremia (principal); B95.61 Methicillin susceptible Staphylococcus aureus infection as the cause of diseases classified elsewhere; Z79.2 Long term (current) use of antibiotics

== ENCOUNTER → 2021-02-01 | Outpatient (REF) | payer MEDICARE, OTHER ==
[2021-02-01 18:14] LABS: FERRITIN 39 NG/ML (26-388); IRON (FE) 77 UG/DL (65-175); PERCENT SATURATION 23.3 % (19.7-50.0); TOTAL IRON BINDING CAPACITY 331 UG/DL (250-450)
[2021-02-01 18:35] LABS: FOLATE 12.5 NG/ML; VITAMIN B12 LEVEL > 2000 PG/ML
== END ==
LOC: M LAB REF 16:21
PROVIDERS: ATTEND Family Medicine
DX: D50.9 Iron deficiency anemia, unspecified (principal); Z12.5 Encounter for screening for malignant neoplasm of prostate
CPT/HCPCS: 82607; 82728; 82746; 83550; G0103

== ENCOUNTER → 2021-02-17 | Outpatient (CLI) | payer MEDICARE, OTHER ==
[2021-02-17 15:39] LABS: BASO % 0.3 % (0.0-1.0); EOS # 0.3 10^3/uL (0.0-0.5); EOS % 2.6 % (0.0-3.0); HEMATOCRIT 41.6 % (42.0-52.0); HEMOGLOBIN 13.6 g/dl (13.5-17.5); LYMPH # 2.5 10^3/uL (1.5-5.0); LYMPH % 24.7 % (24.0-44.0); MEAN CORPUSCULAR HEMOGLOBIN 32.5 pg (27.0-33.0); MEAN CORPUSCULAR HGB CONC 32.7 g/dl (32.0-36.5); MEAN CORPUSCULAR VOLUME 99.5 fl (80.0-96.0); MONO # 0.9 10^3/uL (0.0-0.8); MONO % 8.7 % (2.0-8.0); NEUTROPHILS # 6.5 10^3/uL (1.5-8.5); NEUTROPHILS % 63.3 % (36.0-66.0); PLATELET COUNT, AUTOMATED 192 10^3/uL (150-450); RED BLOOD COUNT 4.18 10^6/uL (4.30-6.10); WHITE BLOOD COUNT 10.2 10^3/uL (4.0-10.0)
[2021-02-17 16:00] LABS: ERYTHROCYTE SEDIMENTATION RATE 13 mm/hr (0-20)
[2021-02-17 16:11] LABS: ALBUMIN 3.4 GM/DL (3.2-5.2); ALT/SGPT 30 U/L (12-78); BILIRUBIN,TOTAL 0.6 MG/DL (0.2-1.0); BLOOD UREA NITROGEN 22 MG/DL (7-18); CALCIUM LEVEL 9.3 MG/DL (8.8-10.2); CARBON DIOXIDE LEVEL 31 MEQ/L (21-32); CHLORIDE LEVEL 105 MEQ/L (98-107); GLOMERULAR FILTRATION RATE > 60.0 (>42); GLUCOSE, FASTING 103 MG/DL (70-100); POTASSIUM SERUM 4.4 MEQ/L (3.5-5.1); SODIUM LEVEL 142 MEQ/L (136-145); TOTAL PROTEIN 6.9 GM/DL (6.4-8.2)
== END ==
LOC: M PLALAB 12:47
PROVIDERS: ATTEND Nurse Practitioner Family
DX: Z51.81 Encounter for therapeutic drug level monitoring (principal); Z79.2 Long term (current) use of antibiotics

== ENCOUNTER → 2021-02-18 | Outpatient (CLI) | payer MEDICARE, OTHER | LOC: M RAD 15:34 | PROVIDERS: ATTEND Family Medicine | DX: Z87.891 Personal history of nicotine dependence (principal) ==

== ENCOUNTER → 2021-03-22 | Outpatient (CLI) | payer MEDICARE, OTHER ==
[2021-03-22 15:24] LABS: BASO # 0.1 10^3/uL (0.0-0.2); BASO % 0.5 % (0.0-1.0); EOS # 0.3 10^3/uL (0.0-0.5); EOS % 2.5 % (0.0-3.0); HEMATOCRIT 42.1 % (42.0-52.0); HEMOGLOBIN 13.9 g/dl (13.5-17.5); LYMPH # 2.7 10^3/uL (1.5-5.0); LYMPH % 23.6 % (24.0-44.0); MEAN CORPUSCULAR HEMOGLOBIN 32.8 pg (27.0-33.0); MEAN CORPUSCULAR VOLUME 99.3 fl (80.0-96.0); MONO # 1.1 10^3/uL (0.0-0.8); MONO % 9.4 % (2.0-8.0); NEUTROPHILS # 7.3 10^3/uL (1.5-8.5); NEUTROPHILS % 63.5 % (36.0-66.0); PLATELET COUNT, AUTOMATED 190 10^3/uL (150-450); RED BLOOD COUNT 4.24 10^6/uL (4.30-6.10); WHITE BLOOD COUNT 11.5 10^3/uL (4.0-10.0)
[2021-03-22 15:43] LABS: ALBUMIN 3.5 GM/DL (3.2-5.2); ALT/SGPT 32 U/L (12-78); BILIRUBIN,TOTAL 0.5 MG/DL (0.2-1.0); BLOOD UREA NITROGEN 23 MG/DL (7-18); C REACTIVE PROTEIN QUANTITATIV 0.31 MG/DL (0.00-0.30); CALCIUM LEVEL 9.3 MG/DL (8.8-10.2); CARBON DIOXIDE LEVEL 32 MEQ/L (21-32); CHLORIDE LEVEL 106 MEQ/L (98-107); CREATININE FOR GFR 0.82 MG/DL (0.70-1.30); GLOMERULAR FILTRATION RATE > 60.0 (>42); GLUCOSE, FASTING 87 MG/DL (70-100); POTASSIUM SERUM 4.5 MEQ/L (3.5-5.1); SODIUM LEVEL 141 MEQ/L (136-145); TOTAL PROTEIN 6.8 GM/DL (6.4-8.2)
[2021-03-22 16:35] LABS: ERYTHROCYTE SEDIMENTATION RATE 17 mm/hr (0-20)
== END ==
LOC: M PLALAB 12:14
PROVIDERS: ATTEND Family Medicine
DX: R78.81 Bacteremia (principal)

== ENCOUNTER → 2021-04-09 | Outpatient (REF) | LOC: M LABSMTC 09:09 | PROVIDERS: ATTEND Pediatrics | DX: Z11.52 Encounter for screening for COVID-19 (principal) ==

== ENCOUNTER → 2021-04-19 | Outpatient (CLI) | payer MEDICARE, OTHER | LOC: M PLALAB 08:36 | PROVIDERS: ATTEND Nurse Practitioner Family | DX: T84.7XXD Infection and inflammatory reaction due to other internal orthopedic prosthetic devices, implants and grafts, subsequent encounter (principal); B95.61 Methicillin susceptible Staphylococcus aureus infection as the cause of diseases classified elsewhere; R78.81 Bacteremia; Z79.2 Long term (current) use of antibiotics ==

== ENCOUNTER → 2021-07-19 | Outpatient (CLI) | payer MEDICARE, OTHER ==
[2021-07-19 11:06] LABS: BASO # 0.1 10^3/uL (0.0-0.2); BASO % 0.5 % (0.0-1.0); EOS # 0.2 10^3/uL (0.0-0.5); EOS % 2.2 % (0.0-3.0); HEMATOCRIT 37.4 % (42.0-52.0); HEMOGLOBIN 12.4 g/dl (13.5-17.5); MEAN CORPUSCULAR HGB CONC 33.2 g/dl (32.0-36.5); MEAN CORPUSCULAR VOLUME 99.5 fl (80.0-96.0); MONO # 0.9 10^3/uL (0.0-0.8); MONO % 9.3 % (2.0-8.0); NEUTROPHILS % 65.7 % (36.0-66.0); PLATELET COUNT, AUTOMATED 176 10^3/uL (150-450); RED BLOOD COUNT 3.76 10^6/uL (4.30-6.10); WHITE BLOOD COUNT 9.2 10^3/uL (4.0-10.0)
[2021-07-19 11:14] LABS: ALBUMIN 3.3 GM/DL (3.2-5.2); ALT/SGPT 28 U/L (12-78); BILIRUBIN,TOTAL 0.6 MG/DL (0.2-1.0); BLOOD UREA NITROGEN 23 MG/DL (7-18); CALCIUM LEVEL 9.1 MG/DL (8.8-10.2); CARBON DIOXIDE LEVEL 26 MEQ/L (21-32); CHLORIDE LEVEL 106 MEQ/L (98-107); CREATININE FOR GFR 0.77 MG/DL (0.70-1.30); GLOMERULAR FILTRATION RATE > 60.0 (>42); GLUCOSE, FASTING 106 MG/DL (70-100); POTASSIUM SERUM 4.3 MEQ/L (3.5-5.1); SODIUM LEVEL 139 MEQ/L (136-145); TOTAL PROTEIN 6.6 GM/DL (6.4-8.2)
[2021-07-19 11:44] LABS: ERYTHROCYTE SEDIMENTATION RATE 16 mm/hr (0-20)
== END ==
LOC: M PLALAB 07:22
PROVIDERS: ATTEND Nurse Practitioner Family
DX: Z79.2 Long term (current) use of antibiotics (principal)

== ENCOUNTER → 2021-08-20 | Outpatient (CLI) | payer MEDICARE, OTHER ==
[~2021-08-20] MED LIST changes: +CITRACAL MAXIMU1 TAB PO; -CITRTAB16 PO
[2021-08-20 15:00] LABS: BASO # 0.1 10^3/uL (0.0-0.2); BASO % 0.6 % (0.0-1.0); EOS # 0.1 10^3/uL (0.0-0.5); EOS % 1.6 % (0.0-3.0); HEMATOCRIT 39.1 % (42.0-52.0); HEMOGLOBIN 12.8 g/dl (13.5-17.5); LYMPH % 22.3 % (24.0-44.0); MEAN CORPUSCULAR HEMOGLOBIN 33.2 pg (27.0-33.0); MEAN CORPUSCULAR HGB CONC 32.7 g/dl (32.0-36.5); MEAN CORPUSCULAR VOLUME 101.3 fl (80.0-96.0); MONO # 0.9 10^3/uL (0.0-0.8); MONO % 9.6 % (2.0-8.0); NEUTROPHILS # 5.9 10^3/uL (1.5-8.5); NEUTROPHILS % 65.6 % (36.0-66.0); PLATELET COUNT, AUTOMATED 175 10^3/uL (150-450); RED BLOOD COUNT 3.86 10^6/uL (4.30-6.10)
[2021-08-20 15:44] LABS: ALBUMIN 3.3 GM/DL (3.2-5.2); ALT/SGPT 30 U/L (12-78); BILIRUBIN,TOTAL 0.8 MG/DL (0.2-1.0); BLOOD UREA NITROGEN 19 MG/DL (7-18); CALCIUM LEVEL 8.7 MG/DL (8.8-10.2); CARBON DIOXIDE LEVEL 28 MEQ/L (21-32); CHLORIDE LEVEL 106 MEQ/L (98-107); CREATININE FOR GFR 0.92 MG/DL (0.70-1.30); ERYTHROCYTE SEDIMENTATION RATE 18 mm/hr (0-20); GLOMERULAR FILTRATION RATE > 60.0 (>42); GLUCOSE, FASTING 69 MG/DL (70-100); POTASSIUM SERUM 4.4 MEQ/L (3.5-5.1); SODIUM LEVEL 140 MEQ/L (136-145); TOTAL PROTEIN 6.7 GM/DL (6.4-8.2)
== END ==
LOC: M PLALAB 11:50
PROVIDERS: ATTEND Nurse Practitioner Family
DX: R78.81 Bacteremia (principal)

== ENCOUNTER → 2021-09-17 | Outpatient (CLI) | payer MEDICARE, OTHER | LOC: M PLALAB 10:38 | PROVIDERS: ATTEND Nurse Practitioner Family | DX: R78.81 Bacteremia (principal); Z79.2 Long term (current) use of antibiotics; B95.61 Methicillin susceptible Staphylococcus aureus infection as the cause of diseases classified elsewhere; T84.7XXD Infection and inflammatory reaction due to other internal orthopedic prosthetic devices, implants and grafts, subsequent encounter ==

== ENCOUNTER → 2022-03-31 | Outpatient (CLI) | payer MEDICARE, OTHER | LOC: M LABSMTC 11:12 | PROVIDERS: ATTEND Anesthesiology | DX: Z01.818 Encounter for other preprocedural examination (principal); Z11.52 Encounter for screening for COVID-19 ==

== ENCOUNTER 2022-04-05 12:41 | Day surgery (SDC) | payer MEDICARE, OTHER ==
[~2022-04-05] VITALS: Ht 172.7 cm; Wt 68.0 kg
[~2022-04-05 12:41] MED LIST changes: +NS 1,000 ML IV ONE
[2022-04-05] MEDS ORDERED: propofoL 200 MG/20 ML VIAL As Ordered ONE (14:20)
[2022-04-05] MEDS ORDERED: LIDOCAINE 2% 100MG/5ML SDV (FOR ANES.) As Ordered ONE (14:20)
[2022-04-05] MEDS ORDERED: SIMETHICONE 40MG/0.6ML DROPS 30ML As Ordered ONE (14:32)
[2022-04-05 14:51] VITALS: BP 142/66
== END 2022-04-05 15:15 | disposition home or self-care (01) ==
LOC: M OPP 12:41
PROVIDERS: ATTEND Internal Medicine Gastroenterology
DX: K21.00 Gastro-esophageal reflux disease with esophagitis, without bleeding (principal); K29.70 Gastritis, unspecified, without bleeding; K31.5 Obstruction of duodenum; K26.4 Chronic or unspecified duodenal ulcer with hemorrhage; K44.9 Diaphragmatic hernia without obstruction or gangrene; Z79.02 Long term (current) use of antithrombotics/antiplatelets; Z79.52 Long term (current) use of systemic steroids; Z79.82 Long term (current) use of aspirin; Z79.891 Long term (current) use of opiate analgesic; Z79.899 Other long term (current) drug therapy; I10 Essential (primary) hypertension; I48.0 Paroxysmal atrial fibrillation; I25.10 Atherosclerotic heart disease of native coronary artery without angina pectoris; G57.93 Unspecified mononeuropathy of bilateral lower limbs; G24.9 Dystonia, unspecified; F41.9 Anxiety disorder, unspecified; Z86.79 Personal history of other diseases of the circulatory system; Z88.4 Allergy status to anesthetic agent

== ENCOUNTER 2022-06-02 19:30 | Emergency (ER) | payer MEDICARE, OTHER ==
[~2022-06-02] VITALS: Ht 172.7 cm; Wt 68.2 kg
[~2022-06-02 19:30] MED LIST changes: -NS 1,000 ML IV ONE
[2022-06-02 20:18] LABS: BASO % 0.3 % (0.0-1.0); EOS # 0.1 10^3/uL (0.0-0.5); EOS % 1.5 % (0.0-3.0); HEMATOCRIT 39.3 % (42.0-52.0); HEMOGLOBIN 13.1 g/dl (13.5-17.5); LYMPH # 2.1 10^3/uL (1.5-5.0); LYMPH % 22.6 % (24.0-44.0); MEAN CORPUSCULAR HEMOGLOBIN 32.4 pg (27.0-33.0); MEAN CORPUSCULAR HGB CONC 33.3 g/dl (32.0-36.5); MEAN CORPUSCULAR VOLUME 97.3 fl (80.0-96.0); MONO % 10.1 % (2.0-8.0); NEUTROPHILS # 6.1 10^3/uL (1.5-8.5); NEUTROPHILS % 65.1 % (36.0-66.0); PLATELET COUNT, AUTOMATED 146 10^3/uL (150-450); RED BLOOD COUNT 4.04 10^6/uL (4.30-6.10); WHITE BLOOD COUNT 9.4 10^3/uL (4.0-10.0)
[2022-06-02 20:29] LABS: INR 1.31; PROTHROMBIN TIME 16.5 SECONDS (12.5-14.5)
[2022-06-02 20:45] LABS: CK-MB VALUE MASS 4.6 NG/ML (<3.6)
[2022-06-02 20:46] LABS: LIPASE 41 U/L (12-53)
[2022-06-02 20:48] LABS: ALBUMIN 3.2 G/DL (3.2-5.2); ALKALINE PHOSPHATASE 135 U/L (46-116); ALT/SGPT 23 U/L (7.0-40); AST/SGOT 26 U/L (<34); BILIRUBIN,DIRECT 0.3 MG/DL (<0.4); BILIRUBIN,TOTAL 0.8 MG/DL (0.3-1.2); BLOOD UREA NITROGEN 21 MG/DL (9-23); CALCIUM LEVEL 8.2 MG/DL (8.3-10.6); CARBON DIOXIDE LEVEL 24 MMOL/L (20-31); CHLORIDE LEVEL 105 MMOL/L (98-107); CREATININE FOR GFR 0.78 MG/DL (0.70-1.30); GLOMERULAR FILTRATION RATE > 60.0 (>42); GLUCOSE, FASTING 128 MG/DL (74-106); POTASSIUM SERUM 4.2 MMOL/L (3.5-5.1); SODIUM LEVEL 137 MMOL/L (136-145); TOTAL PROTEIN 6.2 G/DL (5.7-8.2)
[2022-06-02 20:49] LABS: THYROID STIMULATING HORMONE 4.708 uIU/ML (0.55-4.78)
[2022-06-02 20:54] LABS: CPK CREATINE PHOSPHOKINASE 166 U/L (46-171); MB/CK RELATIVE INDEX 2.77 (< OR =4)
[2022-06-02 20:56] LABS: RSV AMPLIFICATION NEGATIVE (NEGATIVE)
[2022-06-02 21:15] LABS: CK-MB VALUE MASS 4.5 NG/ML (<3.6)
[2022-06-02 21:18] LABS: MB/CK RELATIVE INDEX 2.54 (< OR =4)
[2022-06-02 21:56] VITALS: BP 167/77
== END 2022-06-02 22:13 | disposition home or self-care (01) ==
LOC: M ED 19:30
DX: R07.89 Other chest pain (principal); I48.91 Unspecified atrial fibrillation; R94.31 Abnormal electrocardiogram [ECG] [EKG]; I25.10 Atherosclerotic heart disease of native coronary artery without angina pectoris; I25.2 Old myocardial infarction; I10 Essential (primary) hypertension; E78.5 Hyperlipidemia, unspecified; R42 Dizziness and giddiness; Z79.01 Long term (current) use of anticoagulants; Z79.899 Other long term (current) drug therapy

== ENCOUNTER → 2022-06-30 | Outpatient (REF) | payer MEDICARE, OTHER ==
[~2022-06-30] MED LIST changes: +FLUT50SP17; -FLUTISP
== END ==
LOC: M LAB REF 12:41
PROVIDERS: ATTEND Family Medicine
DX: D50.9 Iron deficiency anemia, unspecified (principal)

== ENCOUNTER → 2022-07-12 | Outpatient (CLI) | payer MEDICARE, OTHER | LOC: M RAD 07:36 | PROVIDERS: ATTEND Family Medicine | DX: Z12.2 Encounter for screening for malignant neoplasm of respiratory organs (principal); Z87.891 Personal history of nicotine dependence ==

== ENCOUNTER 2022-10-28 08:26 | Emergency (ER) | payer MEDICARE, OTHER ==
[~2022-10-28] VITALS: Ht 172.7 cm; Wt 70.9 kg
[2022-10-28] MEDS ORDERED: ELIQ2.5T (08:39)
[2022-10-28] MEDS ORDERED: GABA-282 (08:39)
[2022-10-28] MEDS ORDERED: CELE1CAP11 (08:39)
[2022-10-28] MEDS ORDERED: NORCO, ANEXSIA 5/325MG TABLET (HYDROcodone/ACETAMINOPHEN) PO ONE (09:05)
[2022-10-28] MEDS ORDERED: predniSONE 20 MG TAB PO ONE (09:05)
[2022-10-28 09:49] LABS: BASO # 0.1 10^3/uL (0.0-0.2); BASO % 0.4 % (0.0-1.0); EOS % 0.1 % (0.0-3.0); LYMPH # 0.7 10^3/uL (1.5-5.0); LYMPH % 5.5 % (24.0-44.0); MEAN CORPUSCULAR HEMOGLOBIN 32.4 pg (27.0-33.0); MEAN CORPUSCULAR HGB CONC 34.2 g/dl (32.0-36.5); MEAN CORPUSCULAR VOLUME 94.8 fl (80.0-96.0); NEUTROPHILS # 10.9 10^3/uL (1.5-8.5); NEUTROPHILS % 81.6 % (36.0-66.0); PLATELET COUNT, AUTOMATED 173 10^3/uL (150-450); RED BLOOD COUNT 4.01 10^6/uL (4.30-6.10); WHITE BLOOD COUNT 13.4 10^3/uL (4.0-10.0)
[2022-10-28 10:20] LABS: URIC ACID 5.4 MG/DL (3.7-9.2)
[2022-10-28 10:22] LABS: BLOOD UREA NITROGEN 11 MG/DL (9-23); CALCIUM LEVEL 8.4 MG/DL (8.3-10.6); CARBON DIOXIDE LEVEL 27 MMOL/L (20-31); CHLORIDE LEVEL 98 MMOL/L (98-107); CREATININE FOR GFR 0.66 MG/DL (0.70-1.30); GLOMERULAR FILTRATION RATE > 60.0 (>42); GLUCOSE, FASTING 132 MG/DL (74-106); SODIUM LEVEL 132 MMOL/L (136-145)
[2022-10-28 10:23] LABS: MONO # 1.6 10^3/uL (0.0-0.8)
[2022-10-28] MEDS ORDERED: TRAM50TA2 PO (10:44)
[2022-10-28] MEDS ORDERED: PRED20TA PO (10:44)
[2022-10-28 10:48] VITALS: BP 129/58; TEMP 98.4; O2SAT 99
[2022-10-28 11:19] LABS: ERYTHROCYTE SEDIMENTATION RATE 58 mm/hr (0-20)
== END 2022-10-28 11:35 | disposition home or self-care (01) ==
LOC: M ED 08:26
DX: M11.20 Other chondrocalcinosis, unspecified site (principal); M19.90 Unspecified osteoarthritis, unspecified site; Z79.899 Other long term (current) drug therapy; Z79.82 Long term (current) use of aspirin; Z79.01 Long term (current) use of anticoagulants; I10 Essential (primary) hypertension; E78.00 Pure hypercholesterolemia, unspecified; K21.9 Gastro-esophageal reflux disease without esophagitis; F41.9 Anxiety disorder, unspecified
CPT/HCPCS: 36415; 73110; 73610; 80048; 84550; 85025; 85652; 86140; 99283; J7512

== ENCOUNTER 2022-11-02 19:35 | Emergency (ER) | payer MEDICARE, OTHER ==
[~2022-11-02] VITALS: Ht 172.7 cm; Wt 64.5 kg
[~2022-11-02 19:35] MED LIST changes: +CELE1CAP11; +ELIQ2.5T; +GABA-282; +PRED20TA PO; +TRAM50TA2 PO
[2022-11-02] MEDS ORDERED: PROHANCE 279.3MG/ML 15ML VIAL As Ordered ONE (22:04)
[2022-11-02 23:47] LABS: HEMATOCRIT 38.8 % (42.0-52.0); HEMOGLOBIN 13.4 g/dl (13.5-17.5); MEAN CORPUSCULAR HEMOGLOBIN 32.4 pg (27.0-33.0); MEAN CORPUSCULAR HGB CONC 34.5 g/dl (32.0-36.5); MEAN CORPUSCULAR VOLUME 93.9 fl (80.0-96.0); PLATELET COUNT, AUTOMATED 146 10^3/uL (150-450); RED BLOOD COUNT 4.13 10^6/uL (4.30-6.10); WHITE BLOOD COUNT 11.3 10^3/uL (4.0-10.0)
[2022-11-03 00:02] LABS: BLOOD UREA NITROGEN 20 MG/DL (9-23); CALCIUM LEVEL 8.8 MG/DL (8.3-10.6); CARBON DIOXIDE LEVEL 31 MMOL/L (20-31); CHLORIDE LEVEL 98 MMOL/L (98-107); CREATININE FOR GFR 0.82 MG/DL (0.70-1.30); GLOMERULAR FILTRATION RATE > 60.0 (>42); GLUCOSE, FASTING 95 MG/DL (74-106); POTASSIUM SERUM 3.9 MMOL/L (3.5-5.1); SODIUM LEVEL 136 MMOL/L (136-145)
[2022-11-03 01:05] VITALS: O2SAT 97
[2022-11-03 01:23] VITALS: BP 160/80
[2022-11-03 01:38] LABS: RSV AMPLIFICATION NEGATIVE (NEGATIVE)
[2022-11-03 01:48] VITALS: TEMP 97.4
== END 2022-11-03 01:51 | disposition short-term general hospital (02) ==
LOC: M ED 19:35
DX: S12.000A Unspecified displaced fracture of first cervical vertebra, initial encounter for closed fracture (principal); S12.101A Unspecified nondisplaced fracture of second cervical vertebra, initial encounter for closed fracture; W01.0XXA Fall on same level from slipping, tripping and stumbling without subsequent striking against object, initial encounter; Y92.002 Bathroom of unspecified non-institutional (private) residence as the place of occurrence of the external cause; Y93.01 Activity, walking, marching and hiking; Y99.8 Other external cause status; Z79.899 Other long term (current) drug therapy; Z79.82 Long term (current) use of aspirin; Z95.2 Presence of prosthetic heart valve; Z79.01 Long term (current) use of anticoagulants; Z95.5 Presence of coronary angioplasty implant and graft
CPT/HCPCS: 36415; 70450; 72125; 72156; 80048; 84100; 85027; 87631; 99285; A9576

== ENCOUNTER 2022-11-18 17:34 | Observation (INO) | payer MEDICARE, OTHER ==
[~2022-11-18] VITALS: Ht 172.7 cm; Wt 64.5 kg
[~2022-11-18 17:34] MED LIST changes: -ATOR40TA75; +ATOR40TA75 PO; +CELE0.09 PO; +CELE1CAP; -CELE1CAP11; -CELE1CAP9 PO; -ELIQ2.5T; +ELIQ2.5T PO; -GABA-282; +GABA-282 PO
[2022-11-19] MEDS ORDERED: ACETAMINOPHEN TAB 650MG DOSE (2X325MG) PO ONE (03:25)
[2022-11-19 04:20] LABS: BASO # 0.1 10^3/uL (0.0-0.2); BASO % 0.5 % (0.0-1.0); EOS # 0.2 10^3/uL (0.0-0.5); EOS % 2.1 % (0.0-3.0); HEMATOCRIT 33.2 % (42.0-52.0); HEMOGLOBIN 11.6 g/dl (13.5-17.5); LYMPH # 1.6 10^3/uL (1.5-5.0); LYMPH % 16.9 % (24.0-44.0); MEAN CORPUSCULAR HEMOGLOBIN 32.4 pg (27.0-33.0); MEAN CORPUSCULAR HGB CONC 34.9 g/dl (32.0-36.5); MEAN CORPUSCULAR VOLUME 92.7 fl (80.0-96.0); MONO # 1.2 10^3/uL (0.0-0.8); MONO % 12.9 % (2.0-8.0); NEUTROPHILS # 6.2 10^3/uL (1.5-8.5); NEUTROPHILS % 67.4 % (36.0-66.0); PLATELET COUNT, AUTOMATED 132 10^3/uL (150-450); RED BLOOD COUNT 3.58 10^6/uL (4.30-6.10); WHITE BLOOD COUNT 9.3 10^3/uL (4.0-10.0)
[2022-11-19 04:46] LABS: ALBUMIN 2.3 G/DL (3.2-5.2); ALKALINE PHOSPHATASE 418 U/L (46-116); ALT/SGPT 30 U/L (7.0-40); AST/SGOT 59 U/L (<34); BILIRUBIN,TOTAL 1.6 MG/DL (0.3-1.2); BLOOD UREA NITROGEN 11 MG/DL (9-23); CALCIUM LEVEL 8.2 MG/DL (8.3-10.6); CARBON DIOXIDE LEVEL 23 MMOL/L (20-31); CHLORIDE LEVEL 100 MMOL/L (98-107); CK-MB VALUE MASS 1.3 NG/ML (<3.6); CREATININE FOR GFR 0.55 MG/DL (0.70-1.30); GLOMERULAR FILTRATION RATE > 60.0 (>42); GLUCOSE, FASTING 97 MG/DL (74-106); MAGNESIUM LEVEL 1.6 MG/DL (1.8-2.4); POTASSIUM SERUM 3.8 MMOL/L (3.5-5.1); SODIUM LEVEL 134 MMOL/L (136-145); TOTAL PROTEIN 5.8 G/DL (5.7-8.2)
[2022-11-19 04:50] LABS: THYROID STIMULATING HORMONE 2.265 uIU/ML (0.55-4.78)
[2022-11-19 04:51] LABS: CPK CREATINE PHOSPHOKINASE 81 U/L (46-171)
[2022-11-19] MEDS ORDERED: NS 1,000 ML IV ONE (06:40)
[2022-11-19 06:54] LABS: BILIRUBIN,DIRECT 0.7 MG/DL (<0.4)
[2022-11-19] MEDS ORDERED: ALPRAZolam 0.5 MG TAB PO SCH (09:00)
[2022-11-19] MEDS: FLUTICASONE PROP 0.05% NASAL SPRAY 16 GM (FLONASE) SCH (09:00)
[2022-11-19] MEDS ORDERED: MED REC IN PROGRESS XX SCH (09:40)
[2022-11-19] MEDS ORDERED: MOM 30ML SUSPENSION UDC PO PRN (10:10)
[2022-11-19] MEDS ORDERED: MAALOX 30 ML SUSP *UDC PO PRN (10:10)
[2022-11-19] MEDS ORDERED: HOME MED LIST COMPLETE! XX SCH ×2 (10:15→12:10)
[2022-11-19] MEDS ORDERED: predniSONE 20 MG TAB PO SCH (10:20)
[2022-11-19 12:00] VITALS: BP 142/72; TEMP 97.5; O2SAT 98
[2022-11-19] MEDS: ASPIRIN 81MG ENTERIC TABLET PO SCH (13:22)
[2022-11-19] MEDS: GABAPENTIN 300 MG CAP PO SCH ×3 (13:23→19:56)
[2022-11-19] MEDS: DOCUSATE SODIUM 100MG CAPSULE PO SCH (13:23)
[2022-11-19] MEDS: APIXABAN 2.5 MG TAB (ELIQUIS) PO SCH ×2 (13:23→19:55)
[2022-11-19] MEDS: MAGNESIUM OXIDE 400MG TAB (MAG-OX) PO SCH (15:35)
[2022-11-19 16:41] LABS: PERCENT SATURATION 15.1 % (19.7-50.0)
[2022-11-19] MEDS: ATORVASTATIN 20 MG TAB PO SCH (19:55)
[2022-11-19] MEDS: ACETAMINOPHEN TAB 650MG DOSE (2X325MG) PO PRN (19:56)
[2022-11-19 21:15] VITALS: BP 122/62; TEMP 98.4; O2SAT 97
[2022-11-20 05:18] VITALS: BP 132/66; TEMP 98.1; O2SAT 98
[2022-11-20] MEDS: MAGNESIUM OXIDE 400MG TAB (MAG-OX) PO SCH (09:12)
[2022-11-20] MEDS: DOCUSATE SODIUM 100MG CAPSULE PO SCH (09:12)
[2022-11-20] MEDS: ASPIRIN 81MG ENTERIC TABLET PO SCH (09:12)
[2022-11-20] MEDS: FLUTICASONE PROP 0.05% NASAL SPRAY 16 GM (FLONASE) SCH (09:12)
[2022-11-20] MEDS: GABAPENTIN 300 MG CAP PO SCH ×3 (09:12→21:22)
[2022-11-20] MEDS: APIXABAN 2.5 MG TAB (ELIQUIS) PO SCH ×2 (09:12→21:22)
[2022-11-20 13:55] VITALS: BP 134/64; TEMP 97.9; O2SAT 98
[2022-11-20] MEDS ORDERED: ALPRAZolam 0.5 MG TAB PO SCH (18:00)
[2022-11-20] MEDS: ATORVASTATIN 20 MG TAB PO SCH (21:23)
[2022-11-20 22:00] VITALS: BP 136/65; TEMP 98.6; O2SAT 97
[2022-11-21 06:00] VITALS: BP 134/64; TEMP 98.4; O2SAT 94
[2022-11-21 06:14] LABS: BLOOD UREA NITROGEN 9 MG/DL (9-23); CALCIUM LEVEL 7.7 MG/DL (8.3-10.6); CARBON DIOXIDE LEVEL 28 MMOL/L (20-31); CHLORIDE LEVEL 100 MMOL/L (98-107); CREATININE FOR GFR 0.61 MG/DL (0.70-1.30); GLOMERULAR FILTRATION RATE > 60.0 (>42); GLUCOSE, FASTING 93 MG/DL (74-106); MAGNESIUM LEVEL 1.8 MG/DL (1.8-2.4); SODIUM LEVEL 135 MMOL/L (136-145)
[2022-11-21] MEDS: DOCUSATE SODIUM 100MG CAPSULE PO SCH (08:08)
[2022-11-21] MEDS: APIXABAN 2.5 MG TAB (ELIQUIS) PO SCH ×2 (08:08→21:05)
[2022-11-21] MEDS: ASPIRIN 81MG ENTERIC TABLET PO SCH (08:08)
[2022-11-21] MEDS: GABAPENTIN 300 MG CAP PO SCH ×3 (08:08→21:04)
[2022-11-21] MEDS: MAGNESIUM OXIDE 400MG TAB (MAG-OX) PO SCH (08:08)
[2022-11-21] MEDS: FLUTICASONE PROP 0.05% NASAL SPRAY 16 GM (FLONASE) SCH ×2 (08:09→22:36)
[2022-11-21 14:00] VITALS: BP 130/63; TEMP 98.4; O2SAT 91
[2022-11-21] MEDS: ALPRAZolam 0.5 MG TAB PO SCH (21:05)
[2022-11-21] MEDS: ATORVASTATIN 20 MG TAB PO SCH (21:05)
[2022-11-21 22:00] VITALS: BP 164/71; TEMP 98.8; O2SAT 95
[2022-11-22] VITALS (9 sets, daily range): BP systolic 105–169; BP diastolic 58–86; TEMP 98.6–101.3; O2SAT 97–98
[2022-11-22 06:41] LABS: BLOOD UREA NITROGEN 9 MG/DL (9-23); CALCIUM LEVEL 7.7 MG/DL (8.3-10.6); CARBON DIOXIDE LEVEL 26 MMOL/L (20-31); CHLORIDE LEVEL 100 MMOL/L (98-107); CREATININE FOR GFR 0.61 MG/DL (0.70-1.30); GLOMERULAR FILTRATION RATE > 60.0 (>42); GLUCOSE, FASTING 101 MG/DL (74-106); MAGNESIUM LEVEL 1.8 MG/DL (1.8-2.4); POTASSIUM SERUM 4.1 MMOL/L (3.5-5.1); SODIUM LEVEL 135 MMOL/L (136-145)
[2022-11-22] MEDS: GABAPENTIN 300 MG CAP PO SCH ×3 (08:36→21:02)
[2022-11-22] MEDS: ASPIRIN 81MG ENTERIC TABLET PO SCH (08:36)
[2022-11-22] MEDS: MAGNESIUM OXIDE 400MG TAB (MAG-OX) PO SCH (08:37)
[2022-11-22] MEDS: DOCUSATE SODIUM 100MG CAPSULE PO SCH (08:37)
[2022-11-22] MEDS: APIXABAN 2.5 MG TAB (ELIQUIS) PO SCH ×2 (08:37→21:02)
[2022-11-22 15:57] LABS: BASO % 0.4 % (0.0-1.0); EOS # 0.1 10^3/uL (0.0-0.5); EOS % 0.9 % (0.0-3.0); HEMATOCRIT 38.1 % (42.0-52.0); HEMOGLOBIN 12.9 g/dl (13.5-17.5); LYMPH # 1.5 10^3/uL (1.5-5.0); LYMPH % 14.3 % (24.0-44.0); MEAN CORPUSCULAR HEMOGLOBIN 32.4 pg (27.0-33.0); MEAN CORPUSCULAR HGB CONC 33.9 g/dl (32.0-36.5); MEAN CORPUSCULAR VOLUME 95.7 fl (80.0-96.0); MONO % 15.3 % (2.0-8.0); NEUTROPHILS # 7.3 10^3/uL (1.5-8.5); NEUTROPHILS % 68.5 % (36.0-66.0); PLATELET COUNT, AUTOMATED 203 10^3/uL (150-450); RED BLOOD COUNT 3.98 10^6/uL (4.30-6.10); WHITE BLOOD COUNT 10.6 10^3/uL (4.0-10.0)
[2022-11-22 16:21] LABS: ALBUMIN 2.4 G/DL (3.2-5.2); ALKALINE PHOSPHATASE 504 U/L (46-116); ALT/SGPT 36 U/L (7.0-40); AST/SGOT 49 U/L (<34); BILIRUBIN,TOTAL 1.5 MG/DL (0.3-1.2); BLOOD UREA NITROGEN 10 MG/DL (9-23); CALCIUM LEVEL 8.1 MG/DL (8.3-10.6); CARBON DIOXIDE LEVEL 26 MMOL/L (20-31); CHLORIDE LEVEL 98 MMOL/L (98-107); CREATININE FOR GFR 0.58 MG/DL (0.70-1.30); GLOMERULAR FILTRATION RATE > 60.0 (>42); GLUCOSE, FASTING 118 MG/DL (74-106); POTASSIUM SERUM 4.2 MMOL/L (3.5-5.1); SODIUM LEVEL 130 MMOL/L (136-145); TOTAL PROTEIN 6.4 G/DL (5.7-8.2)
[2022-11-22 16:28] LABS: PROCALCITONIN 0.08 ng/ml
[2022-11-22] MEDS: ACETAMINOPHEN TAB 650MG DOSE (2X325MG) PO PRN (16:41)
[2022-11-22 16:51] LABS: MONO # 1.6 10^3/uL (0.0-0.8)
[2022-11-22 18:31] LABS: ERYTHROCYTE SEDIMENTATION RATE 44 mm/hr (0-20)
[2022-11-22 19:36] LABS: OSMOLALITY URINE 537 MOSM/KG (50-1400)
[2022-11-22 19:46] LABS: SODIUM,RANDOM URINE 77 MMOL/L
[2022-11-22 19:48] LABS: THYROID STIMULATING HORMONE 1.822 uIU/ML (0.55-4.78)
[2022-11-22 19:49] LABS: FREE THYROXINE INDEX 3.8 % (1.4-3.8); T UPTAKE 54.5 % (22.5-37.0)
[2022-11-22 20:20] LABS: HEPATITIS C VIRUS ABY INDEX 0.16 INDEX (<0.8)
[2022-11-22 20:21] LABS: HEPATITIS B CORE ANTIBODY IGM NEGATIVE (NEGATIVE)
[2022-11-22] MEDS: FLUTICASONE PROP 0.05% NASAL SPRAY 16 GM (FLONASE) SCH (21:02)
[2022-11-22] MEDS: LR 1,000 ML IV SCH (21:02)
[2022-11-22] MEDS: ATORVASTATIN 20 MG TAB PO SCH (21:02)
[2022-11-22] MEDS: ALPRAZolam 0.5 MG TAB PO SCH (22:55)
[2022-11-23 02:48] VITALS: BP 125/56; TEMP 99.6; O2SAT 94
[2022-11-23 06:30] VITALS: BP 143/65; TEMP 98.3; O2SAT 95
[2022-11-23 06:42] LABS: BLOOD UREA NITROGEN 11 MG/DL (9-23); CALCIUM LEVEL 7.9 MG/DL (8.3-10.6); CARBON DIOXIDE LEVEL 27 MMOL/L (20-31); CHLORIDE LEVEL 100 MMOL/L (98-107); GLOMERULAR FILTRATION RATE > 60.0 (>42); GLUCOSE, FASTING 106 MG/DL (74-106); MAGNESIUM LEVEL 1.7 MG/DL (1.8-2.4); POTASSIUM SERUM 4.1 MMOL/L (3.5-5.1); SODIUM LEVEL 132 MMOL/L (136-145)
[2022-11-23 07:23] LABS: BASO % 0.5 % (0.0-1.0); EOS # 0.2 10^3/uL (0.0-0.5); EOS % 2.1 % (0.0-3.0); HEMATOCRIT 30.3 % (42.0-52.0); LYMPH # 1.2 10^3/uL (1.5-5.0); LYMPH % 14.3 % (24.0-44.0); MEAN CORPUSCULAR HEMOGLOBIN 32.9 pg (27.0-33.0); MEAN CORPUSCULAR HGB CONC 34.3 g/dl (32.0-36.5); MEAN CORPUSCULAR VOLUME 95.9 fl (80.0-96.0); MONO % 19.1 % (2.0-8.0); NEUTROPHILS # 5.3 10^3/uL (1.5-8.5); NEUTROPHILS % 63.4 % (36.0-66.0); PLATELET COUNT, AUTOMATED 191 10^3/uL (150-450); RED BLOOD COUNT 3.16 10^6/uL (4.30-6.10); WHITE BLOOD COUNT 8.4 10^3/uL (4.0-10.0)
[2022-11-23 07:36] LABS: MONO # 1.6 10^3/uL (0.0-0.8)
[2022-11-23 07:46] LABS: HEMOGLOBIN 10.4 g/dl (13.5-17.5)
[2022-11-23] MEDS ORDERED: MAG SULF 1GM/100ML (MAG RUN) 1 GM in IV 1 EA IV ONE (08:00)
[2022-11-23 08:02] LABS: ERYTHROCYTE SEDIMENTATION RATE 16 mm/hr (0-20)
[2022-11-23] MEDS: LR 1,000 ML IV SCH (08:10)
[2022-11-23] MEDS ORDERED: guaiFENesin ER 600 MG TAB PO SCH (09:00)
[2022-11-23] MEDS ORDERED: cefTRIAXone SOD 2 GM in D5W MINI-BAG PLUS 50 ML IV SCH (09:00)
[2022-11-23] MEDS ORDERED: DOXYCYCLINE HYCLATE 100 MG in D5W MINI-BAG PLUS 100 ML IV SCH (10:00)
[2022-11-23] MEDS: ASPIRIN 81MG ENTERIC TABLET PO SCH (11:30)
[2022-11-23] MEDS: DOCUSATE SODIUM 100MG CAPSULE PO SCH (11:31)
[2022-11-23] MEDS: APIXABAN 2.5 MG TAB (ELIQUIS) PO SCH (11:31)
[2022-11-23] MEDS: GABAPENTIN 300 MG CAP PO SCH ×2 (11:31→16:28)
[2022-11-23] MEDS: MAGNESIUM OXIDE 400MG TAB (MAG-OX) PO SCH (11:31)
[2022-11-23] MEDS ORDERED: DOXY-444 PO (11:49)
[2022-11-23] MEDS ORDERED: CEFD300CAP PO (11:49)
[2022-11-23] MEDS ORDERED: BACI1CAP PO (11:50)
[2022-11-23] MEDS ORDERED: PROHANCE 279.3MG/ML 15ML VIAL As Ordered ONE (12:42)
[2022-11-23] MEDS ORDERED: MUCI600T31 PO (13:59)
[2022-11-23 14:00] VITALS: BP 125/60; TEMP 97.9; O2SAT 97
[2022-11-23] MEDS ORDERED: DOXYCYCLINE HYCLATE 100MG TABLET PO SCH (21:00)
[2022-11-24 12:09] LABS: ANTINUCLEAR ANTIBODIES DIRECT Negative (Negative)
[2022-11-29 08:11] LABS: BODY FLUID CULTURE Not indicated. (.); LEGIONELLA ANTIGEN URINE Negative (Negative); ORGANISM ID Not indicated. (.); SPECIMEN SOURCE Urine (.); URINE STREP PNEUMONIAE ANTIGEN Negative (Negative)
[2022-12-01] MEDS ORDERED: MAGN400T2 PO (10:43)
== END 2022-11-23 18:05 ==
LOC: M ED 17:34 → INTOOBSV 11-19 10:06 → M ED INP 11-19 10:06 → OBSVTOIN 11-19 10:06 → ENRESERV 11-19 10:54 → M MSPAV 11-19 12:15
PROVIDERS: ADMIT Student in an Organized Health Care Education/Training Program; ATTEND General Practice
DX: R54 Age-related physical debility (principal); Z98.890 Other specified postprocedural states; E83.42 Hypomagnesemia; M47.812 Spondylosis without myelopathy or radiculopathy, cervical region; Z91.81 History of falling; J47.9 Bronchiectasis, uncomplicated; R50.9 Fever, unspecified; Z87.891 Personal history of nicotine dependence; Z79.899 Other long term (current) drug therapy; Z79.01 Long term (current) use of anticoagulants; Z79.82 Long term (current) use of aspirin; Z88.8 Allergy status to other drugs, medicaments and biological substances
CPT/HCPCS: 36415; 70450; 71045; 72125; 80048; 80053; 82248; 82306; 82550; 82553; 82607; 83550; 83735; 84443; 84484; 85025; 87635; 93005; 96365; 96366; 96368; 97161; 97530; 99285; G0378

== ENCOUNTER 2022-12-17 05:42 | Inpatient (IN) | payer MEDICARE, OTHER ==
[~2022-12-17] VITALS: Ht 170.2 cm; Wt 57.4 kg
[~2022-12-17 05:42] MED LIST changes: +BACI1CAP PO; +CEFD300CAP PO; +DOXY-444 PO; -FLUT50SP17; +FLUT50SP17 INH; +MAGN400T2 PO; +MIRA3350 PO; +MUCI600T31 PO
[2022-12-17 09:22] LABS: HEMATOCRIT 31.4 % (42.0-52.0); HEMOGLOBIN 10.5 g/dl (13.5-17.5); MEAN CORPUSCULAR HEMOGLOBIN 34.2 pg (27.0-33.0); MEAN CORPUSCULAR HGB CONC 33.4 g/dl (32.0-36.5); MEAN CORPUSCULAR VOLUME 102.3 fl (80.0-96.0); PLATELET COUNT, AUTOMATED 100 10^3/uL (150-450); RED BLOOD COUNT 3.07 10^6/uL (4.30-6.10); WHITE BLOOD COUNT 13.3 10^3/uL (4.0-10.0)
[2022-12-17 09:35] LABS: BLOOD UREA NITROGEN 11 MG/DL (9-23); CALCIUM LEVEL 8.1 MG/DL (8.3-10.6); CARBON DIOXIDE LEVEL 27 MMOL/L (20-31); CHLORIDE LEVEL 100 MMOL/L (98-107); CREATININE FOR GFR 0.65 MG/DL (0.70-1.30); GLOMERULAR FILTRATION RATE > 60.0 (>42); GLUCOSE, FASTING 102 MG/DL (74-106); MAGNESIUM LEVEL 1.9 MG/DL (1.8-2.4); POTASSIUM SERUM 4.2 MMOL/L (3.5-5.1); SODIUM LEVEL 137 MMOL/L (136-145)
[2022-12-17] MEDS ORDERED: MED REC IN PROGRESS XX SCH (10:00)
[2022-12-17] MEDS ORDERED: MED REC CURRENTLY UNOBTAINABLE XX SCH (10:15)
[2022-12-17 11:02] LABS: PROCALCITONIN 0.05 ng/ml
[2022-12-17] MEDS ORDERED: POLY17PO18 PO (11:54)
[2022-12-17] MEDS ORDERED: MAGN400C PO (11:54)
[2022-12-17] MEDS ORDERED: ALPR0.5T3 PO (11:54)
[2022-12-17] MEDS ORDERED: GABA-1171 PO (11:54)
[2022-12-17] MEDS ORDERED: ASPI81CH33 PO (11:54)
[2022-12-17] MEDS ORDERED: BACI1CAP4 PO (11:54)
[2022-12-17] MEDS ORDERED: PEPC40TA12 PO (11:57)
[2022-12-17] MEDS ORDERED: MIRALAX *UNIT DOSE* 17GM PACKET PO PRN (12:05)
[2022-12-17] MEDS ORDERED: LORazepam 2 MG TAB PO PRN (12:05)
[2022-12-17] MEDS ORDERED: HOME MED LIST COMPLETE! XX SCH (12:05)
[2022-12-17] MEDS ORDERED: ISOVUE-370 76% 100ML VIAL As Ordered ONE (17:11)
[2022-12-17] MEDS ORDERED: LR 1,000 ML IV SCH (17:45)
[2022-12-17] MEDS ORDERED: VANCOMYCIN HCL 1,000 MG, VIAL MATE ADAPTER 1 EACH in D5W 250 ML IV ONE (18:00)
[2022-12-17 18:05] VITALS: BP 141/95; TEMP 97.6; O2SAT 92
[2022-12-17 18:20] VITALS: BP 141/95
[2022-12-17] MEDS: GABAPENTIN 100 MG CAP PO SCH ×2 (18:49→20:19)
[2022-12-17] MEDS: APIXABAN 2.5 MG TAB (ELIQUIS) PO SCH ×2 (18:49→20:20)
[2022-12-17] MEDS: MAGNESIUM OXIDE 400MG TAB (MAG-OX) PO SCH ×2 (18:49→20:20)
[2022-12-17] MEDS: cefTRIAXone SOD 2 GM in D5W MINI-BAG PLUS 50 ML IV SCH (19:16)
[2022-12-17 20:14] VITALS: BP 147/74; TEMP 97.7; O2SAT 99
[2022-12-17] MEDS: ATORVASTATIN 20 MG TAB PO SCH (20:19)
[2022-12-17] MEDS: ALPRAZolam 0.5 MG TAB PO PRN (20:20)
[2022-12-17] MEDS: FLUTICASONE PROP 0.05% NASAL SPRAY 16 GM (FLONASE) SCH (20:20)
[2022-12-17] MEDS ORDERED: THIAMINE 100 MG TAB PO SCH (21:00)
[2022-12-17 22:00] VITALS: BP 147/74
[2022-12-17] MEDS: PANTOPRAZOLE 40MG TAB (PROTONIX) PO SCH (22:06)
[2022-12-18] VITALS (7 sets, daily range): BP systolic 134–154; BP diastolic 61–90; TEMP 97–98.7; O2SAT 94–97
[2022-12-18] MEDS ORDERED: VANCOMYCIN HCL 750 MG, VIAL MATE ADAPTER 1 EACH in D5W 250 ML IV SCH ×3
[2022-12-18] MEDS: GABAPENTIN 100 MG CAP PO SCH ×3 (09:00→20:32)
[2022-12-18] MEDS ORDERED: MULTIVITAMINS/MINERALS THERAP 1 TAB PO SCH (09:00)
[2022-12-18] MEDS ORDERED: FOLIC ACID 1MG TAB PO SCH (09:00)
[2022-12-18] MEDS: MAGNESIUM OXIDE 400MG TAB (MAG-OX) PO SCH ×2 (09:03→20:32)
[2022-12-18] MEDS: FLUTICASONE PROP 0.05% NASAL SPRAY 16 GM (FLONASE) SCH (09:03)
[2022-12-18] MEDS: PANTOPRAZOLE 40MG TAB (PROTONIX) PO SCH (09:03)
[2022-12-18] MEDS: APIXABAN 2.5 MG TAB (ELIQUIS) PO SCH ×2 (09:03→20:32)
[2022-12-18 10:01] LABS: HEMATOCRIT 29.7 % (42.0-52.0); MEAN CORPUSCULAR HEMOGLOBIN 33.3 pg (27.0-33.0); MEAN CORPUSCULAR HGB CONC 33.7 g/dl (32.0-36.5); PLATELET COUNT, AUTOMATED 109 10^3/uL (150-450); WHITE BLOOD COUNT 15.9 10^3/uL (4.0-10.0)
[2022-12-18 10:30] LABS: VANCOMYCIN LEVEL TROUGH 10.6 UG/ML (10.0-20.0)
[2022-12-18 10:42] LABS: BLOOD UREA NITROGEN 10 MG/DL (9-23); CALCIUM LEVEL 7.8 MG/DL (8.3-10.6); CARBON DIOXIDE LEVEL 29 MMOL/L (20-31); CHLORIDE LEVEL 100 MMOL/L (98-107); CREATININE FOR GFR 0.53 MG/DL (0.70-1.30); GLOMERULAR FILTRATION RATE > 60.0 (>42); GLUCOSE, FASTING 134 MG/DL (74-106); POTASSIUM SERUM 3.2 MMOL/L (3.5-5.1); SODIUM LEVEL 135 MMOL/L (136-145)
[2022-12-18 12:17] LABS: MAGNESIUM LEVEL 1.7 MG/DL (1.8-2.4)
[2022-12-18] MEDS: VANCOMYCIN HCL 1,000 MG, VIAL MATE ADAPTER 1 EACH in D5W 250 ML IV SCH ×2 (12:22→23:19)
[2022-12-18] MEDS ORDERED: POTASSIUM CHLORIDE 10MEQ SR TABLET PO ONE (13:00)
[2022-12-18] MEDS: cefTRIAXone SOD 2 GM in D5W MINI-BAG PLUS 50 ML IV SCH (16:25)
[2022-12-18] MEDS: ATORVASTATIN 20 MG TAB PO SCH (20:32)
[2022-12-18] MEDS: ALPRAZolam 0.5 MG TAB PO PRN (20:33)
[2022-12-19] VITALS (8 sets, daily range): BP systolic 127–152; BP diastolic 61–93; TEMP 96.9–98.3; O2SAT 94–98
[2022-12-19 05:20] LABS: BASO # 0.1 10^3/uL (0.0-0.2); BASO % 0.3 % (0.0-1.0); EOS # 0.2 10^3/uL (0.0-0.5); EOS % 1.1 % (0.0-3.0); HEMATOCRIT 28.9 % (42.0-52.0); LYMPH # 1.9 10^3/uL (1.5-5.0); LYMPH % 11.6 % (24.0-44.0); MEAN CORPUSCULAR HEMOGLOBIN 34.5 pg (27.0-33.0); MEAN CORPUSCULAR HGB CONC 34.6 g/dl (32.0-36.5); MEAN CORPUSCULAR VOLUME 99.7 fl (80.0-96.0); MONO % 10.7 % (2.0-8.0); NEUTROPHILS # 12.7 10^3/uL (1.5-8.5); NEUTROPHILS % 75.8 % (36.0-66.0); PLATELET COUNT, AUTOMATED 108 10^3/uL (150-450); WHITE BLOOD COUNT 16.7 10^3/uL (4.0-10.0)
[2022-12-19 05:48] LABS: BLOOD UREA NITROGEN 8 MG/DL (9-23); CALCIUM LEVEL 7.6 MG/DL (8.3-10.6); CARBON DIOXIDE LEVEL 28 MMOL/L (20-31); CHLORIDE LEVEL 100 MMOL/L (98-107); CREATININE FOR GFR 0.59 MG/DL (0.70-1.30); GLOMERULAR FILTRATION RATE > 60.0 (>42); GLUCOSE, FASTING 103 MG/DL (74-106); POTASSIUM SERUM 3.5 MMOL/L (3.5-5.1); SODIUM LEVEL 134 MMOL/L (136-145)
[2022-12-19 05:53] LABS: MONO # 1.8 10^3/uL (0.0-0.8)
[2022-12-19] MEDS ORDERED: ISOVUE-370 76% 100ML VIAL As Ordered ONE (08:00)
[2022-12-19] MEDS: MAGNESIUM OXIDE 400MG TAB (MAG-OX) PO SCH ×2 (09:58→20:34)
[2022-12-19] MEDS: FLUTICASONE PROP 0.05% NASAL SPRAY 16 GM (FLONASE) SCH (09:58)
[2022-12-19] MEDS: APIXABAN 2.5 MG TAB (ELIQUIS) PO SCH ×2 (09:58→20:35)
[2022-12-19] MEDS: GABAPENTIN 100 MG CAP PO SCH ×2 (09:58→20:34)
[2022-12-19] MEDS: PANTOPRAZOLE 40MG TAB (PROTONIX) PO SCH (09:58)
[2022-12-19] MEDS: MIRALAX *UNIT DOSE* 17GM PACKET PO SCH ×2 (11:48→20:34)
[2022-12-19] MEDS ORDERED: PROHANCE 279.3MG/ML 15ML VIAL As Ordered ONE (13:48)
[2022-12-19] MEDS: cefTRIAXone SOD 2 GM in D5W MINI-BAG PLUS 50 ML IV SCH (18:05)
[2022-12-19 18:23] LABS: IRON (FE) 21 UG/DL (65-175); PERCENT SATURATION 11.7 % (19.7-50.0); TOTAL IRON BINDING CAPACITY 179 UG/DL (250-425)
[2022-12-19 18:25] LABS: FERRITIN 424.2 NG/ML (10.5-307.3)
[2022-12-19 18:26] LABS: FOLATE 6.95 NG/ML (>5.4)
[2022-12-19 18:31] LABS: VITAMIN B12 LEVEL > 2000 PG/ML (211-911)
[2022-12-19] MEDS: predniSONE 20 MG TAB PO SCH (18:50)
[2022-12-19] MEDS: ATORVASTATIN 20 MG TAB PO SCH (20:35)
[2022-12-19] MEDS: ALPRAZolam 0.5 MG TAB PO PRN (20:38)
[2022-12-20] MEDS: PIPERACILLIN/TAZOBACTAM SOD 3.375 GM in D5W MINI-BAG PLUS 50 ML IV SCH ×5 (00:09→23:14)
[2022-12-20 03:48] VITALS: BP 135/91; TEMP 97; O2SAT 99
[2022-12-20 06:43] LABS: BASO % 0.1 % (0.0-1.0); HEMATOCRIT 29.9 % (42.0-52.0); HEMOGLOBIN 10.2 g/dl (13.5-17.5); LYMPH # 0.9 10^3/uL (1.5-5.0); LYMPH % 5.7 % (24.0-44.0); MEAN CORPUSCULAR HGB CONC 34.1 g/dl (32.0-36.5); MEAN CORPUSCULAR VOLUME 99.7 fl (80.0-96.0); MONO # 0.7 10^3/uL (0.0-0.8); MONO % 4.5 % (2.0-8.0); NEUTROPHILS # 14.5 10^3/uL (1.5-8.5); PLATELET COUNT, AUTOMATED 131 10^3/uL (150-450); WHITE BLOOD COUNT 16.3 10^3/uL (4.0-10.0)
[2022-12-20 07:10] LABS: BLOOD UREA NITROGEN 13 MG/DL (9-23); CALCIUM LEVEL 8.1 MG/DL (8.3-10.6); CARBON DIOXIDE LEVEL 28 MMOL/L (20-31); CHLORIDE LEVEL 100 MMOL/L (98-107); CREATININE FOR GFR 0.58 MG/DL (0.70-1.30); GLOMERULAR FILTRATION RATE > 60.0 (>42); GLUCOSE, FASTING 150 MG/DL (74-106); MAGNESIUM LEVEL 1.8 MG/DL (1.8-2.4); POTASSIUM SERUM 3.7 MMOL/L (3.5-5.1); SODIUM LEVEL 134 MMOL/L (136-145)
[2022-12-20 07:18] VITALS: BP 129/77; TEMP 96.6; O2SAT 96
[2022-12-20 07:28] LABS: ALBUMIN 1.9 G/DL (3.2-5.2); ALKALINE PHOSPHATASE 243 U/L (46-116); ALT/SGPT 33 U/L (7.0-40); AST/SGOT 68 U/L (<34); BILIRUBIN,TOTAL 1.4 MG/DL (0.3-1.2); TOTAL PROTEIN 5.5 G/DL (5.7-8.2)
[2022-12-20] MEDS ORDERED: ISOVUE-370 76% 100ML VIAL As Ordered ONE (07:54)
[2022-12-20] MEDS: METAMUCIL (PSYLLIUM) PACKET PO SCH (09:45)
[2022-12-20] MEDS: predniSONE 20 MG TAB PO SCH (09:45)
[2022-12-20] MEDS: GABAPENTIN 100 MG CAP PO SCH ×2 (09:45→20:27)
[2022-12-20] MEDS: APIXABAN 2.5 MG TAB (ELIQUIS) PO SCH (09:45)
[2022-12-20] MEDS: MIRALAX *UNIT DOSE* 17GM PACKET PO SCH ×2 (09:45→20:27)
[2022-12-20] MEDS: PANTOPRAZOLE 40MG TAB (PROTONIX) PO SCH (09:45)
[2022-12-20] MEDS: MAGNESIUM OXIDE 400MG TAB (MAG-OX) PO SCH ×2 (09:45→20:27)
[2022-12-20] MEDS: FLUTICASONE PROP 0.05% NASAL SPRAY 16 GM (FLONASE) SCH (09:46)
[2022-12-20] MEDS ORDERED: ENOXAPARIN 60MG/0.6ML SYRINGE (J1650 PER 10MG) SC SCH ×3 (10:25→21:00)
[2022-12-20 12:00] VITALS: BP 120/56; TEMP 98.3; O2SAT 96
[2022-12-20] MEDS ORDERED: SODIUM CHLORIDE 0.9% INJ 10 ML SYR IV PRN (18:00)
[2022-12-20] MEDS: SODIUM CHLORIDE 0.9% INJ 10 ML SYR IV SCH (18:51)
[2022-12-20 19:12] LABS: INR 1.98
[2022-12-20 19:13] LABS: PARTIAL THROMBOPLASTIN TIME 35.5 SECONDS (24.8-34.2)
[2022-12-20 19:14] LABS: FIBRINOGEN 178 MG/DL (268-480)
[2022-12-20 19:45] VITALS: BP 104/56; TEMP 98.1; O2SAT 96
[2022-12-20 20:14] LABS: D-DIMER QUANT > 20.00 ug/mL (<0.5)
[2022-12-20] MEDS: ATORVASTATIN 20 MG TAB PO SCH (20:27)
[2022-12-20] MEDS: ALPRAZolam 0.5 MG TAB PO PRN (20:28)
[2022-12-20 22:53] VITALS: BP 101/52; TEMP 98.4; O2SAT 95
[2022-12-20] MEDS ORDERED: MORPHINE 2 MG/ML 1ML VIAL IV ONE (23:00)
[2022-12-21 04:37] VITALS: BP 154/67; TEMP 97; O2SAT 99
[2022-12-21 04:53] LABS: BASO % 0.1 % (0.0-1.0); HEMOGLOBIN 9.6 g/dl (13.5-17.5); LYMPH # 1.4 10^3/uL (1.5-5.0); MEAN CORPUSCULAR HEMOGLOBIN 33.9 pg (27.0-33.0); MEAN CORPUSCULAR HGB CONC 34.3 g/dl (32.0-36.5); MEAN CORPUSCULAR VOLUME 98.9 fl (80.0-96.0); MONO # 1.5 10^3/uL (0.0-0.8); MONO % 6.1 % (2.0-8.0); NEUTROPHILS # 20.8 10^3/uL (1.5-8.5); NEUTROPHILS % 87.2 % (36.0-66.0); PLATELET COUNT, AUTOMATED 138 10^3/uL (150-450); RED BLOOD COUNT 2.83 10^6/uL (4.30-6.10); WHITE BLOOD COUNT 23.9 10^3/uL (4.0-10.0)
[2022-12-21 05:42] LABS: BLOOD UREA NITROGEN 17 MG/DL (9-23); CARBON DIOXIDE LEVEL 28 MMOL/L (20-31); CHLORIDE LEVEL 98 MMOL/L (98-107); CREATININE FOR GFR 0.64 MG/DL (0.70-1.30); GLOMERULAR FILTRATION RATE > 60.0 (>42); GLUCOSE, FASTING 120 MG/DL (74-106); POTASSIUM SERUM 3.6 MMOL/L (3.5-5.1); SODIUM LEVEL 132 MMOL/L (136-145)
[2022-12-21] MEDS: SODIUM CHLORIDE 0.9% INJ 10 ML SYR IV SCH ×2 (05:57→18:49)
[2022-12-21] MEDS: PIPERACILLIN/TAZOBACTAM SOD 3.375 GM in D5W MINI-BAG PLUS 50 ML IV SCH ×3 (05:57→18:49)
[2022-12-21] MEDS ORDERED: LORazepam 2 MG/ML 1ML VIAL IV ONE (07:00)
[2022-12-21 07:38] VITALS: BP 130/75; TEMP 96.1; O2SAT 95
[2022-12-21] MEDS: MIRALAX *UNIT DOSE* 17GM PACKET PO SCH ×2 (11:03→21:50)
[2022-12-21] MEDS: METAMUCIL (PSYLLIUM) PACKET PO SCH (11:03)
[2022-12-21] MEDS: MAGNESIUM OXIDE 400MG TAB (MAG-OX) PO SCH ×2 (11:03→21:50)
[2022-12-21] MEDS: FLUTICASONE PROP 0.05% NASAL SPRAY 16 GM (FLONASE) SCH (11:03)
[2022-12-21] MEDS: PANTOPRAZOLE 40MG TAB (PROTONIX) PO SCH (11:03)
[2022-12-21] MEDS: GABAPENTIN 100 MG CAP PO SCH ×2 (11:03→21:50)
[2022-12-21 11:53] VITALS: BP 166/67; TEMP 96.9; O2SAT 98
[2022-12-21] MEDS ORDERED: LIDOCAINE 1% MDV 20ML VIAL As Ordered ONE (14:27)
[2022-12-21 16:48] VITALS: BP 150/78; TEMP 96.1; O2SAT 99
[2022-12-21] MEDS ORDERED: OLANZapine 2.5MG TABLET PO PRN (17:35)
[2022-12-21] MEDS ORDERED: ENOXAPARIN 60MG/0.6ML SYRINGE (J1650 PER 10MG) SC SCH (17:45)
[2022-12-21] MEDS ORDERED: ACETAMINOPHEN 500 MG TAB PO PRN (18:50)
[2022-12-21 20:01] VITALS: BP 111/67; TEMP 97.2; O2SAT 93
[2022-12-21] MEDS: ATORVASTATIN 20 MG TAB PO SCH (21:50)
[2022-12-22] MEDS: PIPERACILLIN/TAZOBACTAM SOD 3.375 GM in D5W MINI-BAG PLUS 50 ML IV SCH ×2 (00:22→06:32)
[2022-12-22 00:39] VITALS: BP 133/95; O2SAT 89
[2022-12-22 00:45] VITALS: BP 133/95; O2SAT 89
[2022-12-22] MEDS ORDERED: ISOVUE-370 76% 100ML VIAL As Ordered ONE (00:59)
[2022-12-22 01:10] LABS: BASO % 0.1 % (0.0-1.0); EOS % 0.1 % (0.0-3.0); HEMATOCRIT 27.5 % (42.0-52.0); HEMOGLOBIN 9.4 g/dl (13.5-17.5); LYMPH # 1.7 10^3/uL (1.5-5.0); LYMPH % 9.2 % (24.0-44.0); MEAN CORPUSCULAR HEMOGLOBIN 33.9 pg (27.0-33.0); MEAN CORPUSCULAR HGB CONC 34.2 g/dl (32.0-36.5); MEAN CORPUSCULAR VOLUME 99.3 fl (80.0-96.0); MONO % 9.2 % (2.0-8.0); NEUTROPHILS # 14.8 10^3/uL (1.5-8.5); NEUTROPHILS % 80.6 % (36.0-66.0); PLATELET COUNT, AUTOMATED 121 10^3/uL (150-450); RED BLOOD COUNT 2.77 10^6/uL (4.30-6.10); WHITE BLOOD COUNT 18.4 10^3/uL (4.0-10.0)
[2022-12-22 01:24] LABS: INR 2.32; PROTHROMBIN TIME 24.9 SECONDS (12.5-14.5)
[2022-12-22 01:35] LABS: ALBUMIN 2.1 G/DL (3.2-5.2); ALKALINE PHOSPHATASE 219 U/L (46-116); ALT/SGPT 49 U/L (7.0-40); AST/SGOT 85 U/L (<34); BILIRUBIN,TOTAL 1.8 MG/DL (0.3-1.2); BLOOD UREA NITROGEN 21 MG/DL (9-23); CALCIUM LEVEL 8.9 MG/DL (8.3-10.6); CARBON DIOXIDE LEVEL 25 MMOL/L (20-31); CHLORIDE LEVEL 99 MMOL/L (98-107); CREATININE FOR GFR 0.93 MG/DL (0.70-1.30); GLOMERULAR FILTRATION RATE > 60.0 (>42); GLUCOSE, FASTING 143 MG/DL (74-106); POTASSIUM SERUM 3.6 MMOL/L (3.5-5.1); SODIUM LEVEL 133 MMOL/L (136-145); TOTAL PROTEIN 5.9 G/DL (5.7-8.2)
[2022-12-22 01:46] LABS: MONO # 1.7 10^3/uL (0.0-0.8)
[2022-12-22 02:54] VITALS: BP 114/95; O2SAT 96
[2022-12-22] MEDS ORDERED: ENOXAPARIN 60MG/0.6ML SYRINGE (J1650 PER 10MG) SC SCH ×2 (03:00→09:00)
[2022-12-22 04:00] VITALS: BP 129/83; O2SAT 98
[2022-12-22 05:48] LABS: BASO % 0.1 % (0.0-1.0); EOS % 0.1 % (0.0-3.0); HEMATOCRIT 26.8 % (42.0-52.0); HEMOGLOBIN 9.2 g/dl (13.5-17.5); LYMPH % 10.8 % (24.0-44.0); MEAN CORPUSCULAR HEMOGLOBIN 34.2 pg (27.0-33.0); MEAN CORPUSCULAR HGB CONC 34.3 g/dl (32.0-36.5); MEAN CORPUSCULAR VOLUME 99.6 fl (80.0-96.0); MONO # 1.5 10^3/uL (0.0-0.8); MONO % 8.3 % (2.0-8.0); NEUTROPHILS # 14.7 10^3/uL (1.5-8.5); PLATELET COUNT, AUTOMATED 113 10^3/uL (150-450); RED BLOOD COUNT 2.69 10^6/uL (4.30-6.10); WHITE BLOOD COUNT 18.4 10^3/uL (4.0-10.0)
[2022-12-22 05:58] LABS: INR 2.41; PROTHROMBIN TIME 25.7 SECONDS (12.5-14.5)
[2022-12-22 05:59] LABS: PARTIAL THROMBOPLASTIN TIME 43.4 SECONDS (24.8-34.2)
[2022-12-22 06:17] LABS: BLOOD UREA NITROGEN 22 MG/DL (9-23); CALCIUM LEVEL 8.5 MG/DL (8.3-10.6); CARBON DIOXIDE LEVEL 27 MMOL/L (20-31); CHLORIDE LEVEL 97 MMOL/L (98-107); CREATININE FOR GFR 0.93 MG/DL (0.70-1.30); GLOMERULAR FILTRATION RATE > 60.0 (>42); GLUCOSE, FASTING 142 MG/DL (74-106); POTASSIUM SERUM 4.1 MMOL/L (3.5-5.1); SODIUM LEVEL 133 MMOL/L (136-145)
[2022-12-22] MEDS: SODIUM CHLORIDE 0.9% INJ 10 ML SYR IV SCH (06:32)
[2022-12-22] MEDS ORDERED: VANCOMYCIN HCL IV SCH (07:35)
[2022-12-22] MEDS ORDERED: FLUID PLACE HOLDER IV SCH (07:35)
[2022-12-22 08:00] VITALS: BP 140/77; TEMP 97.2; O2SAT 95
[2022-12-22] MEDS: METAMUCIL (PSYLLIUM) PACKET PO SCH (08:25)
[2022-12-22] MEDS: MAGNESIUM OXIDE 400MG TAB (MAG-OX) PO SCH (08:25)
[2022-12-22] MEDS: GABAPENTIN 100 MG CAP PO SCH (08:25)
[2022-12-22] MEDS: MIRALAX *UNIT DOSE* 17GM PACKET PO SCH (08:25)
[2022-12-22] MEDS: PANTOPRAZOLE 40MG TAB (PROTONIX) PO SCH (08:26)
[2022-12-22] MEDS ORDERED: ASPIRIN 81MG ENTERIC TABLET PO SCH (09:00)
[2022-12-22 12:00] VITALS: TEMP 98.1; O2SAT 99
[2022-12-22] MEDS ORDERED: SCOPOLAMINE 1MG TRANSDERMAL PATCH TOP PRN (13:45)
[2022-12-22] MEDS ORDERED: MORPHINE 2 MG/ML 1ML VIAL IV PRN (13:45)
[2022-12-22] MEDS ORDERED: ACETAMINOPHEN 650MG SUPP PR PRN (13:45)
[2022-12-22] MEDS ORDERED: ONDANSETRON 4MG 2ML VIAL IV PRN (13:45)
[2022-12-22] MEDS ORDERED: FLEET ENEMA PR PRN (13:45)
[2022-12-22] MEDS ORDERED: BISACODYL 10MG SUPP PR PRN (13:45)
[2022-12-22] MEDS: ATROPINE SULFATE 1% OPHTH SOLN 2ML BTL SL PRN ×2 (16:27→20:51)
[2022-12-22] MEDS: MORPHINE 10MG/0.5ML ORAL CONCENTRATE SOLUTION U/D SL PRN ×2 (16:52→22:34)
[2022-12-22] MEDS: LORazepam 2 MG/ML 1ML VIAL IV PRN (18:15)
[2022-12-23 11:12] LABS: DRVV SCREEN 86.8 SECONDS
[2022-12-23 11:21] LABS: PTT LUPUS TYPE ANTICOAG SCREEN 2.24 (0-1.20)
[2022-12-23 11:30] LABS: DRVV CONFIRM 93.1 SECONDS; LUPUS CONFIRM RATIO 2.43
[2022-12-23 11:34] LABS: NORMALIZED RATIO 0.92 (0.00-1.20)
[2022-12-23] MEDS: MORPHINE 10MG/0.5ML ORAL CONCENTRATE SOLUTION U/D SL PRN (18:47)
[2022-12-23] MEDS: LORazepam 2 MG/ML 1ML VIAL IV PRN (20:21)
[2022-12-23] MEDS ORDERED: MORPHINE 2 MG/ML 1ML VIAL IV PRN (20:30)
[2022-12-28 08:11] LABS: ANCA-ATYPICAL <1:20 titer (Neg:<1:20); ANTI THROMBIN 3 ANTIGEN IMMUNO 65 % (72-124); ANTI THROMBIN 3 FUNCT ACTIVITY 102 % (75-135); ANTINUCLEAR ANTIBODIES DIRECT Negative (Negative); CARDIOLIPIN IGA ANTIBODY <9 APL U/mL (0-11); CARDIOLIPIN IGG ANTIBODY <9 GPL U/mL (0-14); CARDIOLIPIN IGM ANTIBODY <9 MPL U/mL (0-12); CYTOPLASMIC NEUTROP AB ANCA-C <1:20 titer (Neg:<1:20); HOMOCYST(E)INE SERUM 6.6 umol/L (0.0-19.2); PERINUCLEAR AB ANCA-P <1:20 titer (Neg:<1:20); PROTEIN C ANTIGEN 52 % (60-150); PROTEIN S ANTIGEN FREE 80 % (61-136); PROTEIN S ANTIGEN TOTAL 91 % (60-150); SJOGREN'S ANTI SS-A <0.2 AI (0.0-0.9); SJOGREN'S ANTI SS-B <0.2 AI (0.0-0.9)
== END 2022-12-24 07:27 | disposition expired | DRG 64 ==
LOC: M ED 05:42 → M ED INP 10:18 → ENRESERV 15:38 → OBSVTOIN 16:24 → ENRESERV 17:07 → M PCU 18:00
PROVIDERS: ADMIT Internal Medicine; ATTEND Internal Medicine
PROC: B246ZZZ Ultrasonography of Right and Left Heart (ICD-10-PCS; principal; 2022-12-18)
PROC: 02HV33Z Insertion of Infusion Device into Superior Vena Cava, Percutaneous Approach (ICD-10-PCS; 2022-12-20)
PROC: 0FB13ZX Excision of Right Lobe Liver, Percutaneous Approach, Diagnostic (ICD-10-PCS; 2022-12-21)
DX: I63.443 Cerebral infarction due to embolism of bilateral cerebellar arteries (principal); K75.0 Abscess of liver; I81 Portal vein thrombosis; D65 Disseminated intravascular coagulation [defibrination syndrome]; I48.11 Longstanding persistent atrial fibrillation; D68.4 Acquired coagulation factor deficiency; I48.92 Unspecified atrial flutter; K55.1 Chronic vascular disorders of intestine; C78.7 Secondary malignant neoplasm of liver and intrahepatic bile duct; R54 Age-related physical debility; Z51.5 Encounter for palliative care; Z66 Do not resuscitate; R29.6 Repeated falls; I65.23 Occlusion and stenosis of bilateral carotid arteries; I25.10 Atherosclerotic heart disease of native coronary artery without angina pectoris; I70.8 Atherosclerosis of other arteries; D72.829 Elevated white blood cell count, unspecified; K59.00 Constipation, unspecified; M48.02 Spinal stenosis, cervical region; K21.9 Gastro-esophageal reflux disease without esophagitis; F41.9 Anxiety disorder, unspecified; Z95.1 Presence of aortocoronary bypass graft; Z79.01 Long term (current) use of anticoagulants; Z79.82 Long term (current) use of aspirin; Z79.899 Other long term (current) drug therapy; Z91.048 Other nonmedicinal substance allergy status